=== PATIENT | female | born 1955 | race Caucasian/White ===

== ENCOUNTER 2018-10-16 17:27 | Inpatient (IN) ==
[2018-10-16] MEDS ORDERED: Ketorolac 15 MG/ML VIAL IVP ONE (17:54)
[2018-10-16] MEDS ORDERED: 0.9 % Sodium Chloride 1,000 ML IVC ONE (17:54)
[2018-10-16] MEDS ORDERED: Isovue-370 500 ML BOTTLE IVP ONE (17:54)
[2018-10-16 18:15] LABS: Basophils # 0.1 K/mcL (0.0-0.2); Basophils % 0.2 %; Hematocrit 44.2 % (35.3-44.9); Immature Granulocytes % 0.6 % (0-4); Lymphocytes % 9.2 %; Mean Corpuscular HGB Conc 36.2 g/dL (31.6-35.5); Mean Corpuscular Hemoglobin 30.8 pg (28.0-33.3); Mean Platelet Volume 9.1 fL (9.4-12.4); Monocytes % 6.6 %; Neutrophils # 22.1 K/mcL (1.6-8.9); Platelet Count 420 K/mcL (140-400); Red Cell Distribution Width 12.4 % (11.5-14.5); Segmented Neutrophils % 83.4 %; White Blood Count 26.5 K/mcL (4.3-11.1)
[2018-10-16 18:16] LABS: Lymphocytes # 2.4 K/mcL (0.6-4.6); Monocytes # 1.8 K/mcL (0.0-1.3)
[2018-10-16 18:33] LABS: Potassium 2.8 mEq/L (3.5-5.1)
[2018-10-16 18:36] LABS: Platelet Estimate Normal (Normal)
[2018-10-16] MEDS ORDERED: Clindamycin 600 MG/50 ML 600 MG/50 ML IV.SOLN IVPB STA (19:22)
--- NOTE | 2018-10-16 19:36 | Emergency Department Note ---
Disposition Clinical Impression: Abscess of tongue Disposition: Admitted As Inpatient Condition: Fair Time of Disposition: 19:00 General Adult HPI - General Chief complaint: ED Shortness of Breath/Dyspnea Stated complaint: tongue/throat swelling Time Seen by Provider: 10/16/18 17:33 Source: patient Limitations: no limitations Nursing Notes Reviewed: Yes Vital Signs Reviewed: Yes - History of Present Illness HPI Narrative: 63-year-old female presents emergency Department with concerns of swelling of the tongue and sore throat. Patient was evaluated yesterday for similar symptoms and diagnosed as possible viral syndrome. She is given steroids and pain medication however the symptoms worsened today. She states she is unable to swallow. She does have swelling of the left side of her tongue. Today she was evaluated again by her primary care provider who also reported likely viral syndrome. She denies fever, vomiting, chest pain, shortness of breath, abdominal pain. Patient reports that she has been unable to eat or drink today and feels lightheaded. Pain Scale: 10 - Related Data Home Medications Medication Instructions Recorded Confirmed Amlodipine Besylate 10 mg PO DAILY 03/28/17 10/16/18 Losartan Potassium 100 mg PO DAILY 03/28/17 10/16/18 Citalopram [CeleXA] 20 mg PO DAILY 10/16/18 10/16/18 hydrOXYzine HCl [Hydroxyzine HCl] 25 mg PO Q8H PRN 10/16/18 10/16/18 Previous Rx's Medication Instructions Recorded predniSONE [PredniSONE] 10 mg PO DAILY #21 tablet 03/30/17 Allergies Allergy/AdvReac Type Severity Reaction Status Date / Time zomax AdvReac Hallucinati Uncoded 10/16/18 22:37 ng All systems ED: reviewed and negative except as stated. Review of Systems: As Per HPI Past Medical History - Past Medical History Attestation: Yes The following information was validated with the patient. Source: patient Medical history: Reports: hypertension Psychiatric history: Reports: no psych history - Social History Smoking Status: Current every day smoker Smokeless Tobacco Status: No Alcohol use: Reports: none Drug use: Reports: none Physical Exam General: Alert and in no acute distress Skin: Warm, dry, intact ENT: Patient has swelling of the left side of her tongue, no uvular deviation. No trismus. Neck: Tender to palpation of the left submandibular area. No posterior midline tenderness. Cardiovascular: RRR, no murmur, normal perfusion Respiratory: CTAB, no wheezing, cough, or respiratory distress Musculoskeletal: Normal strength, no tenderness, swelling or deformity GI: Soft, nontender, nondistended. Bowel sounds present Neuro: A&O to person, place, time and situation. No focal deficits noted on exam Psychiatric: cooperative and appropriate mood and affect. - General Limitations: no limitations General appearance: in no apparent distress Course Vital Signs Temperature 98.1 F 10/16/18 17:29 Pulse Rate 88 10/16/18 17:29 Respiratory Rate 16 10/16/18 17:29 Blood Pressure 209/95 10/16/18 17:29 O2 Sat by Pulse Oximetry 95 10/16/18 17:29 Temperature 98.2 F 10/16/18 21:57 Pulse Rate 82 10/16/18 21:57 Respiratory Rate 16 10/16/18 21:57 Blood Pressure 175/75 10/17/18 00:33 O2 Sat by Pulse Oximetry 91 10/16/18 21:57 Oxygen Delivery Oxygen Delivery Room Air Medical Decision Making - [facility] Narrative Medical decision making narrative: Patient had mildly prolonged QT on EKG. CT showed possible neoplasm versus abscess of the left posterior tongue, I spoke with ENT regarding the patient's case and presentation who will see the patient in the hospital. Patient pain improved with treatment in emergency department. She was started on clindamycin for likely abscess. Patient and family were updated regarding CT results. Patient will be admitted to the hospitalist for further care and evaluation. - Medical Records Medical records reviewed: Yes I reviewed the patient's medical records. - Lab Data Lab results reviewed: Yes I reviewed the patient's lab results. Result diagrams: 10/16/18 18:00 10/16/18 18:00 Lab Results 10/16/18 10/16/18 10/16/18 Range/Units 18:00 18:00 20:31 WBC 26.5 H (4.3-11.1) K/mcL RBC 5.20 H (3.82-4.97) M/mcL Hgb 16.0 H (11.5-15.4) g/dL Hct 44.2 (35.3-44.9) % MCV 85.0 (83.0-100.0) fL MCH 30.8 (28.0-33.3) pg MCHC 36.2 H (31.6-35.5) g/dL RDW 12.4 (11.5-14.5) % Plt Count 420 H (140-400) K/mcL MPV 9.1 L (9.4-12.4) fL Immature Gran % 0.6 (0-4) % Seg Neutrophils % 83.4 % Lymphocytes % 9.2 % Monocytes % 6.6 % Eosinophils % 0.0 % Basophils % 0.2 % Neutrophils # 22.1 H (1.6-8.9) K/mcL Lymphocytes # 2.4 (0.6-4.6) K/mcL Monocytes # 1.8 H (0.0-1.3) K/mcL Eosinophils # 0.0 (0.0-0.6) K/mcL Basophils # 0.1 (0.0-0.2) K/mcL Platelet Estimate Normal (Normal) Sodium 133 L (136-145) mEq/L Potassium 2.8 L (3.5-5.1) mEq/L Chloride 91 L (98-107) mEq/L Carbon Dioxide 28 (23-29) mEq/L BUN 21 (8-23) mg/dL Creatinine 1.13 (0.60-1.20) mg/dL Est GFR ( Amer) 59 L (> 60) Est GFR (Non-Af Amer) 49 L (> 60) BUN/Creatinine Ratio 19 (6-26) Glucose 117 H (70-105) mg/dL Calculated Osmolality 280 (280-300) Lactic Acid 0.8 (0.5-2.2) mmol/L Calcium 10.0 (8.6-10.3) mg/dL Magnesium 2.1 (1.6-2.6) mg/dL - Radiology Data Radiology results reviewed: Yes I reviewed the patient's radiology results. - EKG Data EKG #1 EKG attestation: Yes I reviewed and interpreted this EKG. EKG results narrative: Illnesses rhythm with a rate of 86 without evidence of STEMI or other dysrhythmia. QTC of 504, QRS 99
[2018-10-16] MEDS ORDERED: *HR* HYDROmorphone (PF) 1 MG/ML SYRINGE IVP ONE (20:13)
[2018-10-16] MEDS ORDERED: Dexamethasone 4 MG/ML VIAL IVP ONE (20:20)
[2018-10-16] MEDS ORDERED: Naloxone 0.4 MG/ML INJ IVP PRN (20:22)
[2018-10-16 20:38] LABS: Magnesium 2.1 mg/dL (1.6-2.6)
--- NOTE | 2018-10-16 21:24 | Internal Med History&Physical ---
Date of Encounter: 10/16/18 Time of Encounter: 21:21 Internal Medicine - H&P: HPI Chief complaint: neck pain Admitted From: Home Plans for Post Hospital Care: Home History of present illness: Jacqueline Baer is a 63-year-old woman with hypertension who comes in with a complaint of soreness in her throat that started 2 days ago as well as left ear pain radiating down to her left jawline. She was seen in the emergency room last night where was that she had a viral illness and was given a dose of steroids and recommended to take NSAIDs as needed. She comes in today with increasing swelling in her left submandibular area and left jaw as well as difficulty swallowing due to swelling of her tongue. She says she has been unable to even drink anything because of significant pain and difficulty swallowing. She denies associated fever or chills. She says the pain is significantly worse and the tongue swelling concerned her was brought her in for evaluation again. In the ER she was notably hypertensive and lab work revealed a leukocyte count of 26.5, sodium 133, potassium 2.8 and chloride 91. Soft tissue CT of her neck showed a nonspecific lesion posterior within the left lung base concerning for a neoplastic process or an aggressive infectious process in addition to reactive shotty lymph nodes. She was given fluids and clindamycin in the emergency room and is admitted for further care. She denies any recent dental manipulations. Vitals: Reviewed General: Well-developed woman who appears to be in notable discomfort with a voice deeper than expected. Skin: Warm and supple. HEENT: Moist mucous membranes. No conjunctivae pallor. Poor dentition with notable caries and halitosis. Left hemitongue is notably swollen and beefy in appearance with mobility hindered by pain. Neck: Notably large and tender preauricular, submandibular and anterior cervical lymph nodes with a bulging mass in the left jaw angle that is exquisitely tender to palpation and warm to touch. Chest: Normal thoracic expansion. Normal breath sounds. Clear to auscultation. Heart: Normal S1 & S2; rhythmic. No rubs or murmurs. Abdomen: Non-distended, soft and non-tender to palpation. No peritoneal reaction. Extremities: No clubbing, cyanosis or edema. No calf tenderness. Normal distal pulses. Neurological: Awake, alert and oriented to person, place and time. No focal deficits. Psych: Affect appropriate. Assessment/Plan 1. Submandibular mass: Given the rapidly progressive process, her notably poor dentition with caries and halitosis, this is likely an infectious entity with differentials including a retropharyngeal abscess, Ludwigs angina or a peritonsillar abscess. She is also at risk of developing a suppurative thrombophlebitis is adequate care is not given urgently. Will consult ENT, tart ampicillin/sulbatam 3grs q6hrs, give a 10mg dose of dexamethasone and provide analgesics as needed. Keep NPO and close respiratory watch is needed as these tissue invasive entities could lead to airway compromise. 2. Leukocytosis: Possibly reactionary from the steroids given yesterday in the ER however there is likely an element of the infectious process at play as well. Will check lactate and draw blood cultures. 3. Hypertension: Poorly controlled. Will monitor after pain is better controlled. 4. Tobacco use: 5 minutes were spent counseling and educating the patient on this habit. senior manager creative services and resources were made available. Past Med Surg Social Fam HX - Past Medical History Medical history: hypertension Psychiatric history: no psych history - Social History Smoking Status: Current every day smoker Smokeless Tobacco Status: No Alcohol use: none Drug use: none Internal Medicine - H&P: Meds Amlodipine Besylate 5 mg PO DAILY 03/28/17 [History] Losartan Potassium 100 mg PO DAILY 03/28/17 [History] predniSONE [PredniSONE] 10 mg PO DAILY #21 tablet 03/30/17 [Rx] Citalopram [CeleXA] 20 mg PO DAILY 10/16/18 [History] hydrOXYzine HCl [Hydroxyzine HCl] 25 mg PO Q8H PRN 10/16/18 [History] hydroCHLOROthiazide [Hydrochlorothiazide] 25 mg PO DAILY 10/16/18 [History] Allergy/AdvReac Type Severity Reaction Status Date / Time No Known Allergies Allergy Verified 03/28/17 19:16 All Systems PM: A 10-system review of systems was performed and is negative for pertinent findings except as documented above in the HPI. Family history reviewed and found non-contributory. - Constitutional Vitals: Temp Pulse Resp BP Pulse Ox 98.1 F 79 16 173/86 97 10/16/18 17:29 10/16/18 19:46 10/16/18 19:46 10/16/18 19:46 10/16/18 19:46 Exam: . Internal Med - H&P Results - Labs CBC & Chem 7: 10/16/18 18:00 10/16/18 18:00 Labs: Short CBC 10/16/18 Range/Units 18:00 WBC 26.5 H (4.3-11.1) K/mcL Hgb 16.0 H (11.5-15.4) g/dL Hct 44.2 (35.3-44.9) % Plt Count 420 H (140-400) K/mcL Neutrophils # 22.1 H (1.6-8.9) K/mcL BMP 10/16/18 18:00 Sodium 133 L Potassium 2.8 L Chloride 91 L Carbon Dioxide 28 BUN 21 Creatinine 1.13 Glucose 117 H Calcium 10.0 - Impressions ITS Impressions Soft Tissue Neck CT 10/16/18 17:54 IMPRESSION: 1. Nonspecific lesion posterior within the LEFT tongue base concerning for neoplastic process versus aggressive infectious process with probable abscess. 2. Rather extensive carotid artery calcification predominates at the carotid bulb bilateral, with probable greater than 70% stenosis on the RIGHT. Ultrasound duplex or CTA neck correlation recommended. 3. A few shotty lymph nodes in the bilateral upper neck are probably reactive, nonspecific. 4. Emphysema. D/ / Zack Herrera / Zack Herrera Interpreting Provider: Zack Herrera - Time Spent With Patient Total time spent is greater than 50% in coordination of care (as documented) at patient's floor/unit and/or counseling patient: Greater than 35 minutes
[2018-10-16] MEDS: Potassium Chloride 40 MEQ in D5% in 0.45% NACL 1,000 ML IVC SCH (21:35)
[2018-10-16] MEDS: Ampicillin/Sulbactam 3,000 MG in 0.9 % Sodium Chloride Mini Bag 100 ML IVPB SCH (23:16)
[2018-10-16] MEDS: Ketorolac 30 MG/ML VIAL IVP PRN (23:22)
[2018-10-17] MEDS ORDERED: Dexamethasone 4 MG/ML VIAL IVP ONE (04:01)
[2018-10-17] MEDS ORDERED: *HR* Labetalol 20 MG/4 ML SYRINGE IVP ONE (04:02)
[2018-10-17 05:31] LABS: Basophils % 0.1 %; Hematocrit 40.9 % (35.3-44.9); Immature Granulocytes % 0.6 % (0-4); Lymphocytes # 0.7 K/mcL (0.6-4.6); Lymphocytes % 4.3 %; Mean Corpuscular HGB Conc 35.7 g/dL (31.6-35.5); Mean Corpuscular Hemoglobin 31.4 pg (28.0-33.3); Mean Platelet Volume 9.2 fL (9.4-12.4); Monocytes # 0.4 K/mcL (0.0-1.3); Monocytes % 2.5 %; Platelet Count 362 K/mcL (140-400); Red Blood Count 4.65 M/mcL (3.82-4.97); Red Cell Distribution Width 12.7 % (11.5-14.5); Segmented Neutrophils % 92.5 %; White Blood Count 16.2 K/mcL (4.3-11.1)
[2018-10-17 05:37] LABS: Hemoglobin 14.6 g/dL (11.5-15.4)
[2018-10-17 05:43] LABS: Alanine Aminotransferase 14 Units/L (7-52); Albumin/Globulin Ratio 1.2 (1.1-2.2); Alkaline Phosphatase 112 Units/L (34-104); Aspartate Amino Transferase 12 Units/L (13-39); BUN/Creatinine Ratio 22 (6-26); Bilirubin,Direct 0.1 mg/dL (0.0-0.2); Bilirubin,Indirect 0.4 mg/dL (0.0-1.2); Bilirubin,Total 0.5 mg/dL (0.3-1.0); Blood Urea Nitrogen 20 mg/dL (8-23); Calcium 9.1 mg/dL (8.6-10.3); Carbon Dioxide 25 mEq/L (23-29); Chloride 98 mEq/L (98-107); Globulin 3.3 g/dL (2.4-3.5); Glucose 170 mg/dL (70-105); Osmolality,Calculated 281 (280-300); Potassium 3.1 mEq/L (3.5-5.1); Sodium 132 mEq/L (136-145); Total Protein 7.3 g/dL (6.4-8.9); eGFR For African Americans > 60 (> 60); eGFR For Non-African Americans > 60 (> 60)
[2018-10-17 05:53] LABS: Activated Partial Thrombo Time 32.4 Seconds (26.0-36.0); Prothrombin Time 11.4 Seconds (9.4-12.1)
[2018-10-17] MEDS: Ampicillin/Sulbactam 3,000 MG in 0.9 % Sodium Chloride Mini Bag 100 ML IVPB SCH ×3 (05:57→17:36)
[2018-10-17] MEDS ORDERED: Potassium Chloride 40 MEQ, Lidocaine 1% 2 ML in D5% in Water 500 ML IVPB ONE (08:36)
[2018-10-17] MEDS ORDERED: amLODIPine 5 MG TABLET PO SCH (09:00)
--- NOTE | 2018-10-17 09:47 | Electrocardiograph Report ---
[address] [address] Test Date: 2018-10-16 Pat Name: Jacqueline Baer Department: [id number] Room: 3A63 Gender: F Family Life Counselor: : 1955 Requested By: Luis F Byers Order Number: [id number] Reading MD: Mateo Romero Measurements Intervals [place] Rate: 86 P: 69 MD: 170 QRS: 67 QRSD: 99 T: 39 QT: 421 QTc: 504 Interpretive Statements Sinus rhythm LAE, consider biatrial enlargement Left ventricular hypertrophy with ST-T changes Prolonged QT interval Electronically Signed On 10-17-2018 9:45:40 EDT by Mateo Romero
[2018-10-17] MEDS: *HR* Labetalol 20 MG/4 ML SYRINGE IVP PRN (11:09)
[2018-10-17] MEDS: Ketorolac 30 MG/ML VIAL IVP PRN (11:10)
[2018-10-17] MEDS: Nicotine 21 MG PATCH.TD24 TD SCH (11:10)
--- NOTE | 2018-10-17 12:04 | Internal Med Progress Note ---
Hospitalist Progress Note - Encounter Date of Encounter: 10/17/18 Time of Encounter: 09:30 - Subjective Interval History: H&P reviewed. Patient states that her tongue discomfort is somewhat better today. No fever/chills - Exam Vitals: Temp Pulse Resp BP Pulse Ox 98.3 F 71 15 180/65 94 10/17/18 10:52 10/17/18 10:52 10/17/18 10:52 10/17/18 10:52 10/17/18 10:52 Exam: Vitals: Reviewed General: not in distress HEENT: Poor dentition with notable caries and halitosis. Left hemitongue is notably swollen with mobility limited by pain. Unable to visualize uvula very well due to limited tongue movement Neck: several tender cervical lymph nodes on the left Chest: Normal thoracic expansion. Normal breath sounds. Clear to auscultation. Heart: Normal S1 & S2; rhythmic. No rubs or murmurs. Abdomen: Non-distended, soft and non-tender to palpation. No peritoneal reaction. Neurological: Awake, alert and oriented to person, place and time. No focal deficits. - Assessment and Plan (1) Abscess of tongue Current Visit: Yes Status: Acute Assessment and Plan: CT scan demonstrated nonspecific posterior left tongue base lesion ?neoplastic process vs. abscess associated with leukocytosis as well started on IV Unasyn, continue ENT consult, keep NPO till then (2) HTN (hypertension) Current Visit: Yes Status: Chronic Assessment and Plan: When necessary labetalol while nothing by mouth (3) Carotid artery stenosis Current Visit: Yes Status: Acute Assessment and Plan: Incidental finding of extensive carotid artery calcification laterally. No history of CVA/TIA Carotid Doppler (4) Anxiety Current Visit: Yes Status: Chronic Assessment and Plan: On when necessary hydroxyzine at home will use IV Ativan while NPO DVT Prophylaxis: EPCD - Time Spent with Patient Total time spent is greater than 50% in coordination of care (as documented) at patient's floor/unit and/or counseling patient: 25 - 35 minutes Plan of Care Discussed with: patient (Discussed with ENT) Internal Medicine: Result - Labs CBC & Chem 7: 10/17/18 04:49 10/17/18 04:49 Labs: Short CBC 10/16/18 10/17/18 Range/Units 18:00 04:49 WBC 26.5 H 16.2 H (4.3-11.1) K/mcL Hgb 16.0 H 14.6 (11.5-15.4) g/dL Hct 44.2 40.9 (35.3-44.9) % Plt Count 420 H 362 (140-400) K/mcL Neutrophils # 22.1 H 15.0 H (1.6-8.9) K/mcL BMP 10/16/18 10/17/18 18:00 04:49 Sodium 133 L 132 L Potassium 2.8 L 3.1 L Chloride 91 L 98 Carbon Dioxide 28 25 BUN 21 20 Creatinine 1.13 0.90 Glucose 117 H 170 H Calcium 10.0 9.1 Liver Function 10/17/18 Range/Units 04:49 Total Bilirubin 0.5 (0.3-1.0) mg/dL Direct Bilirubin 0.1 (0.0-0.2) mg/dL AST 12 L (13-39) Units/L ALT 14 (7-52) Units/L Alkaline Phosphatase 112 H (34-104) Units/L Albumin 4.0 (3.5-5.7) g/dL - ABG Interpretation ABG results: PT/INR, D-dimer PT 11.4 Seconds (9.4-12.1) 10/17/18 04:49 - Impressions Impressions Soft Tissue Neck CT 10/16/18 17:54 IMPRESSION: 1. Nonspecific lesion posterior within the LEFT tongue base concerning for neoplastic process versus aggressive infectious process with probable abscess. 2. Rather extensive carotid artery calcification predominates at the carotid bulb bilateral, with probable greater than 70% stenosis on the RIGHT. Ultrasound duplex or CTA neck correlation recommended. 3. A few shotty lymph nodes in the bilateral upper neck are probably reactive, nonspecific. 4. Emphysema. D/ / Zack Herrera / Zack Herrera Interpreting Provider: Zack Herrera Consult Discharge Plan - Plan Referrals: Chuck Rolon DO [Primary Care Provider] - ___ (2) HTN (hypertension) Qualifiers: Hypertension type: essential hypertension Qualified Code(s): I10 - Essential (primary) hypertension (3) Carotid artery stenosis Qualifiers: Laterality: bilateral Qualified Code(s): I65.23 - Occlusion and stenosis of bilateral carotid arteries
[2018-10-17] MEDS ORDERED: *HR* LORazepam 2 MG/ML VIAL IVP PRN (12:11)
--- NOTE | 2018-10-17 12:52 | ENT - Consult Note ---
Date of Encounter: 10/17/18 Time of Encounter: 12:48 Assessment and Plan (1) Abscess of tongue Current Visit: Yes Status: Acute 63 yo female w/ increased risk of H&N scca with small 13x8mm left tongue abscess. Is currently responding to IV antibiotics so I would continue for 36- 48h then consider switching to oral antibiotics. If she does well on oral then would DC home. If at any time she worsens would discuss the r/b of proceeding to the OR for incision and drainage of abscess. Patient indicates understanding and agrees with plan. History of Present Illness Consult date: 10/17/18 Reason for ENT Consult: other History of present illness: 63 yo female w/ h/o throat pain since Saturday. Was seen in ED on and given steroids and NSAIDs for presumed viral illness. Developed left tongue swelling and worsening pain, odynophagia, and L otalgia and returned last night with worsening exam and elevated WBC. CT neck with contrasts showed 8x13mm fluid collection at the approx intersection of the posterior 1/3 and anteriorly 2/3 of the L tongue with mass effect on the valeculla. Genioglossus is edematous and there is soft tissue stranding in L level II. Today patient reports improvement in pain and ability to swallow. Pain is 5/10 now. Receizing IV zosyn and had dose of steroids in ER. Has not tried to take anything by mouth today. ROS was done and was negative for cough, nasal congestion, hemoptysis, teeth pain, voice changes or hearing changes. Past Med Surg Social Fam HX - Past Medical History Medical history: hypertension Psychiatric history: no psych history - Social History Smoking Status: Current every day smoker Packs per day: 2 Smokeless Tobacco Status: No Alcohol use: none Drug use: none Medications and Allergies Amlodipine Besylate 10 mg PO DAILY 03/28/17 [History] Losartan Potassium 100 mg PO DAILY 03/28/17 [History] predniSONE [PredniSONE] 10 mg PO DAILY #21 tablet 03/30/17 [Rx] Citalopram [CeleXA] 20 mg PO DAILY 10/16/18 [History] hydrOXYzine HCl [Hydroxyzine HCl] 25 mg PO Q8H PRN 10/16/18 [History] Allergy/AdvReac Type Severity Reaction Status Date / Time zomax AdvReac Hallucinati Uncoded 10/16/18 22:37 ng ENT Exam Initial Vital Signs Temp Pulse Resp BP Pulse Ox 98.1 F 88 16 209/95 95 10/16/18 17:29 10/16/18 17:29 10/16/18 17:29 10/16/18 17:29 10/16/18 17:29 - Additional Findings General: reviewed vital signs. Patient appears well is alert and appropriately answers questions. Has low coarse voice Head: Normocephalic, atraumatic. No sinus tenderness to palpation Ears: normal auricles bilaterally. EAC clear on the left. EAC clear on the right. TM on the left is pearly with good landmarks, no retractions, and mobile to autoinsufflation. TM on the right is pearly with good landmarks, no retractions, and mobile to insufflation. Hearing intact to quiet voice. Nose: external nose without major deformity. Nasal septum is midline. Nasal turbinates with mild edema bilaterally. Mucosa is moist and pink with thick sticky mucous Oral cavity: mild/moderate trismus. lips without lesions. Gums and hard palate normal, mucous membranes are moist. Teeth in poor condition Floor of mouth is soft. Jesús's and Bobbi's ducts are normal bilaterally. Tongue is TTP with mild enlargement on the left with induration of the dorsal tongue just anteriorly to the circumvellate papilla. No masses or lesions noted. Oropharynx: uvula is midline. Tonsils are atrophic. Posterior pharyngeal wall is unremarkable. Neck: no overlying skin changes. Midline trachea, no crepitus. Thyroid is small and symmetric. There is L LAD of levels I II and III. Parotid and govea bmandibular glands are soft on the R, somewhat enlarged on the left and firm SMG. Slight tenderness to palpation around the neck. Cranial Nerves: CN II-XII intact and symmetric. Mood and affect are appropriate. CV: carotid pulses are symmetric and normal in the neck. No JVD, good BL UE distal pulses. Pulm: normal chest expansion, normal respiratory effort. No peripheral cyanosis. Flexible Nasopharyngoscopy: After verbal informed consent was obtained, the bi lteral nares was sprayed with 1:1 ratio of afrin and 4% topical lidocaine. The bilateral nasal cavity was examined and there was no lesions noted. The nasopharynx was clear with---. There were no lesions in the bilateral fossa of rosenmueller. The nasopharynx, velopharynx, oropharynx, hypopharynx, and glottis were examinded with no abnormalities, notably no mucosal abnormalities seen The patient tolerated this well. Exam Initial Vital Signs Temp Pulse Resp BP Pulse Ox 98.1 F 88 16 209/95 95 10/16/18 17:29 10/16/18 17:29 10/16/18 17:29 10/16/18 17:29 10/16/18 17:29 Results - Labs 10/17/18 04:49 10/17/18 04:49 Abnormal lab results WBC 16.2 K/mcL (4.3-11.1) H 10/17/18 04:49 RBC 5.20 M/mcL (3.82-4.97) H 10/16/18 18:00 Hgb 16.0 g/dL (11.5-15.4) H 10/16/18 18:00 MCHC 35.7 g/dL (31.6-35.5) H 10/17/18 04:49 Plt Count 420 K/mcL (140-400) H 10/16/18 18:00 MPV 9.2 fL (9.4-12.4) L 10/17/18 04:49 15.0 K/mcL (1.6-8.9) H 10/17/18 04:49 1.8 K/mcL (0.0-1.3) H 10/16/18 18:00 Sodium 132 mEq/L (136-145) L 10/17/18 04:49 Potassium 3.1 mEq/L (3.5-5.1) L 10/17/18 04:49 Chloride 91 mEq/L (98-107) L 10/16/18 18:00 Est GFR ( Amer) 59 (> 60) L 10/16/18 18:00 Est GFR (Non-Af Amer) 49 (> 60) L 10/16/18 18:00 Glucose 170 mg/dL (70-105) H 10/17/18 04:49 POC Glucose 132 mg/dL (70-99) H 10/17/18 10:55 AST 12 Units/L (13-39) L 10/17/18 04:49 112 Units/L (34-104) H 10/17/18 04:49 Diabetes panel 10/16/18 10/17/18 Range/Units 18:00 04:49 Sodium 133 L 132 L (136-145) mEq/L Potassium 2.8 L 3.1 L (3.5-5.1) mEq/L Chloride 91 L 98 (98-107) mEq/L Carbon Dioxide 28 25 (23-29) mEq/L BUN 21 20 (8-23) mg/dL Creatinine 1.13 0.90 (0.60-1.20) mg/dL Glucose 117 H 170 H (70-105) mg/dL Calcium 10.0 9.1 (8.6-10.3) mg/dL AST 12 L (13-39) Units/L ALT 14 (7-52) Units/L Alkaline Phosphatase 112 H (34-104) Units/L Albumin 4.0 (3.5-5.7) g/dL Calcium panel 10/16/18 10/17/18 Range/Units 18:00 04:49 Calcium 10.0 9.1 (8.6-10.3) mg/dL Albumin 4.0 (3.5-5.7) g/dL Pituitary panel 10/16/18 10/17/18 Range/Units 18:00 04:49 Sodium 133 L 132 L (136-145) mEq/L Potassium 2.8 L 3.1 L (3.5-5.1) mEq/L Chloride 91 L 98 (98-107) mEq/L Carbon Dioxide 28 25 (23-29) mEq/L BUN 21 20 (8-23) mg/dL Creatinine 1.13 0.90 (0.60-1.20) mg/dL Glucose 117 H 170 H (70-105) mg/dL Calcium 10.0 9.1 (8.6-10.3) mg/dL Adrenal panel 10/16/18 10/17/18 Range/Units 18:00 04:49 Sodium 133 L 132 L (136-145) mEq/L Potassium 2.8 L 3.1 L (3.5-5.1) mEq/L Chloride 91 L 98 (98-107) mEq/L Carbon Dioxide 28 25 (23-29) mEq/L BUN 21 20 (8-23) mg/dL Creatinine 1.13 0.90 (0.60-1.20) mg/dL Glucose 117 H 170 H (70-105) mg/dL Calcium 10.0 9.1 (8.6-10.3) mg/dL Total Bilirubin 0.5 (0.3-1.0) mg/dL AST 12 L (13-39) Units/L ALT 14 (7-52) Units/L Alkaline Phosphatase 112 H (34-104) Units/L Albumin 4.0 (3.5-5.7) g/dL All other labs normal. Consult Discharge Plan - Plan Referrals: Chuck Rolon DO [Primary Care Provider] -
[2018-10-17] MEDS: Potassium Chloride 40 MEQ in D5% in 0.45% NACL 1,000 ML IVC SCH (17:36)
[2018-10-18] MEDS: Ampicillin/Sulbactam 3,000 MG in 0.9 % Sodium Chloride Mini Bag 100 ML IVPB SCH ×5 (00:37→23:47)
[2018-10-18 06:21] LABS: Basophils % 0.2 %; Eosinophils % 0.1 %; Hematocrit 35.8 % (35.3-44.9); Hemoglobin 12.6 g/dL (11.5-15.4); Immature Granulocytes % 0.3 % (0-4); Lymphocytes # 2.8 K/mcL (0.6-4.6); Lymphocytes % 23.7 %; Mean Corpuscular HGB Conc 35.2 g/dL (31.6-35.5); Mean Corpuscular Hemoglobin 31.3 pg (28.0-33.3); Mean Corpuscular Volume 88.8 fL (83.0-100.0); Mean Platelet Volume 9.4 fL (9.4-12.4); Monocytes # 0.8 K/mcL (0.0-1.3); Monocytes % 6.6 %; Neutrophils # 8.1 K/mcL (1.6-8.9); Platelet Count 286 K/mcL (140-400); Red Blood Count 4.03 M/mcL (3.82-4.97); Red Cell Distribution Width 12.9 % (11.5-14.5); Segmented Neutrophils % 69.1 %; White Blood Count 11.7 K/mcL (4.3-11.1)
[2018-10-18 06:38] LABS: BUN/Creatinine Ratio 19 (6-26); Blood Urea Nitrogen 15 mg/dL (8-23); Calcium 8.4 mg/dL (8.6-10.3); Carbon Dioxide 28 mEq/L (23-29); Chloride 101 mEq/L (98-107); Glucose 94 mg/dL (70-105); Osmolality,Calculated 285 (280-300); Potassium 3.3 mEq/L (3.5-5.1); Sodium 137 mEq/L (136-145); eGFR For African Americans > 60 (> 60); eGFR For Non-African Americans > 60 (> 60)
[2018-10-18] MEDS ORDERED: Potassium Chloride Elixir 20 MEQ/15 ML UDC PO ONE (09:00)
--- NOTE | 2018-10-18 09:50 | Discharge Summary ---
Orders not resulted at time of discharge: Pending orders 10/16/18 20:31 Culture,Blood [BC] Stat Date of Encounter: 10/18/18 Time of Encounter: 07:45 - Discharge Diagnosis (1) Abscess of tongue Priority: Primary Status: Acute (2) HTN (hypertension) Priority: Secondary Status: Chronic Qualifiers: Hypertension type: essential hypertension Qualified Code(s): I10 - Essential (primary) hypertension (3) Carotid artery stenosis Priority: Secondary Status: Acute Qualifiers: Laterality: bilateral Qualified Code(s): I65.23 - Occlusion and stenosis of bilateral carotid arteries (4) Anxiety Priority: Secondary Status: Chronic Hospital course: Ms. Baer is a 63 year old female with history of hypertension, tobacco abuse, who was admitted for L tongue abscess in the setting of poor dentition/caries. Also had leukocytosis of 26 on presentation. STarted on IV Unasyn with clinical improvement. SEen in consultation with ENT and given her response to IV Abx, pt was recommended for medical treatment. Incidentally, on CT neck, there was extensive carotid artery calcification predominantly at the carotid bulb bilaterally hence doppler study was performed. Both ICAs had 40-59% stenosis. White blood cell count downtrended from 26-11.7 after 2 days of IV antibiotics and she will be discharged home on a total of 14 day course with PO Augmentin and ENT follow up if needed. Coreg 12.5mg BID was added for poorly controlled HTN. Discharge discussed with: patient, family, nurse, end user consultant - Time Spent with Patient Total time spent providing and/or coordinating discharge services: 31 mins - Discharge Medications Prescriptions: New Amoxicillin/Clavulanate [Augmentin] 875 mg PO BIDWM 12 Days #24 tablet Carvedilol [Coreg] 12.5 mg PO BID #30 tablet Continued Losartan Potassium 100 mg PO DAILY Amlodipine Besylate 10 mg PO DAILY predniSONE [PredniSONE] 10 mg PO DAILY #21 tablet Citalopram [CeleXA] 20 mg PO DAILY hydrOXYzine HCl [Hydroxyzine HCl] 25 mg PO Q8H PRN PRN Reason: Anxiety Home Medications: Amlodipine Besylate 10 mg PO DAILY 03/28/17 [History] Losartan Potassium 100 mg PO DAILY 03/28/17 [History] predniSONE [PredniSONE] 10 mg PO DAILY #21 tablet 03/30/17 [Rx] Citalopram [CeleXA] 20 mg PO DAILY 10/16/18 [History] hydrOXYzine HCl [Hydroxyzine HCl] 25 mg PO Q8H PRN 10/16/18 [History] Amoxicillin/Clavulanate [Augmentin] 875 mg PO BIDWM 12 Days #24 tablet 10/18/18 [Rx] Carvedilol [Coreg] 12.5 mg PO BID #30 tablet 10/18/18 [Rx] Allergies/Adverse Reactions: Allergy/AdvReac Type Severity Reaction Status Date / Time zomax AdvReac Hallucinati Uncoded 10/16/18 22:37 ng Date of admission: 10/17/18 04:06 Primary care physician: Chuck Rolon DO Consults: 10/16/18 19:38 Consult to ENT [CONS] Stat Consulting Provider: JENN Genao Reason for Consult: tongue swelling Time Notified: 19:38 Call Completed: Yes 10/16/18 22:33 Consult to Nutrition [CONS] Routine Comment: Consulting Provider: NUTRITION Reason for Dietary Consult: MST Score 10/17/18 14:43 Consult to Speech Therapy [CONS] Routine Comment: Evaluate, develop and implement POC Reason for Consult: Swollen tongue, pain with swallowing Call Completed: Yes - Constitutional Vitals: Temp Pulse Resp BP Pulse Ox 97.7 F 60 14 188/72 97 10/18/18 07:37 10/18/18 07:37 10/18/18 07:37 10/18/18 07:37 10/18/18 07:37 Exam: Vitals: Reviewed General: not in distress HEENT: Poor dentition with notable caries and halitosis. Left hemitongue is notably swollen with mobility limited by pain. Unable to visualize uvula very well due to limited tongue movement Neck: several tender cervical lymph nodes on the left Chest: Normal thoracic expansion. Normal breath sounds. Clear to auscultation. Heart: Normal S1 & S2; rhythmic. No rubs or murmurs. Abdomen: Non-distended, soft and non-tender to palpation. No peritoneal reaction. Neurological: Awake, alert and oriented to person, place and time. No focal deficits. - Patient Status Disposition: Home, Self-Care Condition: Fair Functional capacity at discharge: independent ambulation Overall status at discharge: patient is progressing back to baseline - Discharge Instructions Instructions: Peripheral Vascular Disorders (DC), Anxiety (DC), Chronic Hypertension (DC) Follow Up With: Chuck Rolon DO [Primary Care Provider] - Anh Harris [Partnered Physician] - - Diet and Activity Activity: resume usual activities as tolerated Diet: other (pureed diet)
[2018-10-18] MEDS: Nicotine 21 MG PATCH.TD24 TD SCH (10:23)
--- NOTE | 2018-10-18 11:53 | ENT - Progress Note ---
Date of Encounter: 10/18/18 Time of Encounter: 11:51 - Assessment and Plan (1) Abscess of tongue Current Visit: Yes Status: Acute 63 yo female HD#2 for IV abx for small tongue abscess. Clinically patient is improving in white count and physical exam. Still has continued pain. I would like to have patient kept NPO after midnight and I will round early tomorrow AM. If pain is not improved will plan for I&D of abscess in OR with general anesthesia for airway protection. If improved would switch to PO antibiotics tomorrow AM. Code(s): K14.0 - Glossitis SNOMED Code(s): 81599930 Subjective Patient reports: no new complaints (HD#2 for small left tongue abscess, pain, and decreased PO intake. Pt continues on IV unasyn and pain control. Has been afebrile since admission. Reports that pain is the same today. Continues to have difficulty with food although chart documents that she ate 100% of her pureed breakfast.), afebrile Objective Initial Vital Signs Temp Pulse Resp BP Pulse Ox 98.1 F 88 16 209/95 95 10/16/18 17:29 10/16/18 17:29 10/16/18 17:29 10/16/18 17:29 10/16/18 17:29 - General physical appearance well developed, well nourished, no distress - ENT Other (Today on the left side of the tongue there are 2 small (2mm) areas of yellow ulceration. Not friable. Tongue feels less edematous today but continues to be indurated. Foul odor is improved today.) - Neck no masses, no lymphadectomy - Labs 10/18/18 05:32 10/18/18 05:32 Diabetes panel 10/18/18 Range/Units 05:32 Sodium 137 (136-145) mEq/L Potassium 3.3 L (3.5-5.1) mEq/L Chloride 101 (98-107) mEq/L Carbon Dioxide 28 (23-29) mEq/L BUN 15 (8-23) mg/dL Creatinine 0.78 (0.60-1.20) mg/dL Glucose 94 (70-105) mg/dL Calcium 8.4 L (8.6-10.3) mg/dL Calcium panel 10/18/18 Range/Units 05:32 Calcium 8.4 L (8.6-10.3) mg/dL Pituitary panel 10/18/18 Range/Units 05:32 Sodium 137 (136-145) mEq/L Potassium 3.3 L (3.5-5.1) mEq/L Chloride 101 (98-107) mEq/L Carbon Dioxide 28 (23-29) mEq/L BUN 15 (8-23) mg/dL Creatinine 0.78 (0.60-1.20) mg/dL Glucose 94 (70-105) mg/dL Calcium 8.4 L (8.6-10.3) mg/dL Adrenal panel 10/18/18 Range/Units 05:32 Sodium 137 (136-145) mEq/L Potassium 3.3 L (3.5-5.1) mEq/L Chloride 101 (98-107) mEq/L Carbon Dioxide 28 (23-29) mEq/L BUN 15 (8-23) mg/dL Creatinine 0.78 (0.60-1.20) mg/dL Glucose 94 (70-105) mg/dL Calcium 8.4 L (8.6-10.3) mg/dL Consult Discharge Plan - Plan Instructions: Peripheral Vascular Disorders (DC), Chronic Hypertension (DC), Anxiety (DC) Referrals: Anh Harris [Partnered Physician] - Chuck Rolon DO [Primary Care Provider] - Prescriptions: Amoxicillin/Clavulanate [Augmentin] 875 mg PO BIDWM 12 Days #24 tablet Carvedilol [Coreg] 12.5 mg PO BID #30 tablet
[2018-10-18] MEDS: *HR* Labetalol 20 MG/4 ML SYRINGE IVP PRN (12:09)
[2018-10-18] MEDS: Ketorolac 30 MG/ML VIAL IVP PRN ×2 (12:12→18:32)
[2018-10-19] MEDS: *HR* Labetalol 20 MG/4 ML SYRINGE IVP PRN ×2 (03:24→12:58)
[2018-10-19] MEDS: Ampicillin/Sulbactam 3,000 MG in 0.9 % Sodium Chloride Mini Bag 100 ML IVPB SCH ×2 (05:28→12:57)
[2018-10-19] MEDS: Nicotine 21 MG PATCH.TD24 TD SCH (08:09)
[2018-10-19] MEDS ORDERED: amLODIPine 5 MG TABLET PO SCH (09:00)
--- NOTE | 2018-10-19 09:24 | ENT - Progress Note ---
Date of Encounter: 10/19/18 Time of Encounter: 08:57 - Assessment and Plan (1) Abscess of tongue Current Visit: Yes Status: Acute 63 yo female HD#2 for IV abx for small tongue abscess. Clinically patient has continued to improve and although she still has pain it is also improved. Given her continued pain and otalgia I still have a high clinical suspision for underlying neoplasm. Agree with plan for transition to PO Augmentin x10 days. We will see her back in the ENT clinic in 7-10 days for repeat exam and [employer] scope. Thank you for the medical care of this patient. ENT will sign off for now. Code(s): K14.0 - Glossitis SNOMED Code(s): 87277832 Subjective Patient reports: no new complaints (No acute events o/n. Has been NPO since midnight. Afebrile for duration of hospital stay. Last dose of pain medication was oxycodone at 22:30 last night. Continues to have L tongue and ear pain but it is improved from yesterday.) Objective Initial Vital Signs Temp Pulse Resp BP Pulse Ox 98.1 F 88 16 209/95 95 10/16/18 17:29 10/16/18 17:29 10/16/18 17:29 10/16/18 17:29 10/16/18 17:29 - General physical appearance well developed, well nourished, no distress, no pain - ENT Other (No trismus. Area on left side of tongue with rhomboid erythema and 2 2mm ulcerations appears stable. Tongue feels much softs and I do not appreciate any induration this AM. She continues to have moderate pain with bimanual palpation.) - Neck no masses, trachea midline, no lymphadectomy - Labs 10/18/18 05:32 10/18/18 05:32 Consult Discharge Plan - Plan Instructions: Peripheral Vascular Disorders (DC), Chronic Hypertension (DC), Anxiety (DC) Referrals: Anh Harris [Partnered Physician] - Chuck Rolon DO [Primary Care Provider] - Prescriptions: Amoxicillin/Clavulanate [Augmentin] 875 mg PO BIDWM 12 Days #24 tablet Carvedilol [Coreg] 12.5 mg PO BID #30 tablet
--- NOTE | 2018-10-19 09:59 | Event Note ---
Date of Encounter: 10/19/18 Time of Encounter: 08:00 See discharge summary for interim events. Discharge was held yesterday as there was a question on whether I&D would be needed today. Received a call from ENT surgeon this morning that she is clinically improving and be ok with discharge with PO abx. Follow up with ENT as directed.
[2018-10-19 10:48] VITALS: BP 172/77
== END 2018-10-19 14:39 | disposition home or self-care (01) | DRG 159 ==
LOC: EMEROOARM 17:27 → 3ANU 17:27 → SUATTDRO 10-17 04:06
PROVIDERS: ADMIT Internal Medicine; ATTEND Internal Medicine

== ENCOUNTER 2018-11-10 21:50 | Observation (INO) ==
[2018-11-10] MEDS ORDERED: 0.9 % Sodium Chloride 1,000 ML IVC ONE (22:44)
[2018-11-10] MEDS ORDERED: *HR* Promethazine 25 MG/ML VIAL IVP ONE (22:44)
[2018-11-10] MEDS ORDERED: *HR* FentaNYL (PF) 100 MCG/2 ML VIAL IVP ONE (22:44)
[2018-11-10] MEDS ORDERED: *HR* Labetalol 20 MG/4 ML SYRINGE IVP ONE (22:46)
--- NOTE | 2018-11-10 23:05 | Emergency Department Note ---
Disposition Clinical Impression: Accelerated hypertension, Troponin I above reference range, Hyponatremia, Hypokalemia, Aneurysm of infrarenal abdominal aorta Disposition: Admitted As Inpatient Condition: Fair Referrals: Chuck Rolon DO [Primary Care Provider] - Forms: ED Satisfaction Letter, Work/School Release Time of Disposition: 00:22 General Adult HPI - General Chief complaint: ED General Medical Stated complaint: Low K+, sent by PCP Time Seen by Provider: 11/10/18 22:32 Source: patient Mode of arrival: ambulatory Limitations: no limitations Nursing Notes Reviewed: Yes Vital Signs Reviewed: Yes - History of Present Illness HPI Narrative: Patient presents emergency Department, reporting that her blood work was abno rmal and she was called and told her potassium was 2.3 and that she should go to the hospital. She reports that she was recently hospitalized for hypertension and difficulty with swallowing, with tongue swelling and throat swelling she states that all gotten better but she does report that over the last 2 days she has had increasing abdominal pain and nausea and vomiting with constipation. She has had no prior surgeries in her abdomen. Patient states that she was started on new blood pressure medication as an outpatient she reports she was able to keep this down today. She states that she took both doses her morning and nighttime dose but reports that he met discharged from the hospital her blood pressures were still significantly elevated. Patient denies any focal numbness or weakness speech difficulty vision changes neck pain jaw pain chest pain or shortness of breath. She reports that she did start to get a headache this evening. She reports no sudden onset of worst headache of life, states that she does have a headache all over but states that is mild, the majority of her discomfort is her abdomen and into her left lower abdomen more than anywhere. She states that even that is not that bad she is more worried about the nausea and vomiting and electrolyte abnormality that she was told about. She denies any palpitations. She denies sensation that she is going to pass out. She denies any leg pain or leg swelling. She states that she had these laboratory studies done in follow-up as she is supposed to have a biopsy performed for a abnormality that they found in her workup when she was admitted for the tongue swelling. She denies any urinary changes. Pain Scale: 10 - Related Data Home Medications Medication Instructions Recorded Confirmed Losartan/Hydrochlorothiazide 1 tab PO DAILY #0 03/28/17 10/18/18 [Losartan-Hctz 100-25 mg Tab] amLODIPine [Norvasc] 5 mg PO DAILY #0 03/28/17 10/18/18 Citalopram [CeleXA] 20 mg PO DAILY 10/16/18 10/18/18 hydrOXYzine HCl [Hydroxyzine HCl] 25 mg PO Q8H PRN 10/16/18 10/16/18 Previous Rx's Medication Instructions Recorded Carvedilol [Coreg] 12.5 mg PO BID #30 tablet 10/18/18 Allergies Allergy/AdvReac Type Severity Reaction Status Date / Time zomax AdvReac Hallucinating, Uncoded 11/10/18 13:39 Swelling, Rash All systems ED: reviewed and negative except as stated. Review of Systems: As Per HPI Past Medical History - Past Medical History Medical history: Reports: hypertension Surgical history: Reports: breast surgery Psychiatric history: Reports: no psych history - Social History Smoking Status: Current every day smoker Smokeless Tobacco Status: No Alcohol use: Reports: none Drug use: Reports: none Physical Exam - General Limitations: no limitations General appearance: alert - Head Head exam: atraumatic, normocephalic - Eye Eye exam: Present: normal appearance, PERRL, EOMI. Absent: scleral icterus, con junctival injection - ENT ENT exam: normal exam, normal oropharynx, mucous membranes moist - Neck Neck exam: Present: normal inspection, full ROM, trachea midline. Absent: tenderness, meningismus, lymphadenopathy, thyromegaly - Chest Chest inspection: Present: normal inspection, symmetric chest wall rise - Respiratory Respiratory exam: Present: normal lung sounds bilaterally. Absent: respiratory distress, wheezes, stridor, accessory muscle use - Cardiovascular Cardiovascular exam: Present: regular rate, normal rhythm, normal heart sounds. Absent: systolic murmur - Abdominal Exam Abdominal exam: Present: soft, other (Mild left lower quadrant tenderness no rebound guarding or peritoneal sign, no palpable or pulsatile mass. Remainder of the abdomen is soft without significant reproducible tenderness. No percussion tenderness no shake tenderness no distention, normal bowel sounds.) - Extremities Exam Extremities exam: Present: normal inspection, full ROM, normal capillary refill. Absent: tenderness, pedal edema, joint swelling - Expanded Lower Extremity Exam Hip/Pelvis exam: Present: normal inspection, full ROM Foot/toe exam: Present: normal inspection, full ROM. Absent: tenderness, swelling, abrasion Neurovascular/Tendon exam: Present: normal capillary refill. Absent: pulse deficit, motor deficit, sensory deficit, tendon deficit, extremity cold to touch, pallor - Back Exam Back exam: Present: normal inspection, full ROM. Absent: tenderness, CVA tenderness (R), CVA tenderness (L) - Neurological Exam Neurological exam: Present: alert, oriented X3, CN II-XII intact, normal gait, reflexes normal. Absent: motor sensory deficit - Psychiatric Psychiatric exam: Present: normal affect, normal mood - Skin Skin exam: Present: warm, dry, intact, normal color, other (No jaundice no rash no petechia) Course Vital Signs Temperature 97.8 F 11/10/18 21:51 Pulse Rate 90 11/10/18 21:51 Respiratory Rate 16 11/10/18 21:51 Blood Pressure 223/115 11/10/18 21:51 O2 Sat by Pulse Oximetry 98 11/10/18 21:51 Temperature 97.8 F 11/10/18 21:51 Pulse Rate 75 11/11/18 00:15 Respiratory Rate 17 11/11/18 00:15 Blood Pressure 204/91 11/11/18 00:15 O2 Sat by Pulse Oximetry 98 11/11/18 00:15 Oxygen Delivery Oxygen Delivery Room Air Medical Decision Making - [facility] Narrative Medical decision making narrative: EKG was a normal sinus rhythm, compared to prior EKG there is some nonspecific T-wave flattening, cannot completely rule out a U wave within the T-wave, no evidence of ST elevation or ST depression. No acute change from previous. Patient had an IV placed she was provided with symptomatic management. I did review her chart, she did have outpatient potassium that was listed as 10.3, we will recheck this. Imaging of the abdomen pelvis was ordered. CBC demonstrated mild leukocytosis, hemoglobin of 17.5, no other acute abnormality. Renal panel showed hyponatremia of 129 and hypokalemia of 2.1. Patient was initially 1 L bolus of IV fluids, was then started on maintenance fluids, with significant IV potassium supplementation 40 of by mouth potassium as well as 40 of IV potassium was ordered. LFTs within acceptable limits. Lipase was borderline elevated 115. CT scan of the abdomen pelvis is interpreted by radiology showed no acute intra- abdominal inflammatory process, did demonstrate 3.4 cm infrarenal aneurysm, without any findings to suggest leak or rupture without contrast. Patient is without tachycardia, without hypotension, without acute anemia, with no secondary signs to suggest leak of her aneurysm, which is also only 3.4 cm in size, and much less likely to cause rupture, with no evidence of rupture without contrast, she does have a slightly increased creatinine from baseline, at 1.15 up from 0.78 and was 1.27 as an outpatient today, do not feel based upon her c linical examination of there is indication to repeat this CAT scan with IV contrast this time. Troponin was borderline at 0.04, patient remained without any chest pain or shortness of breath. After 1 dose of IV labetalol for her significant blood pressure elevation, her blood pressure decreased from 235 systolic down to 204 systolic down from the 118 diastolic down to 91 diastolic, she was given a secondary dose of IV labetalol, however is demonstrating appropriate response to this medication at this time and her symptoms are significant improvement she had complete resolution of her headache she had significant improvement of her nausea and vomiting after Phenergan and improvement of her abdominal pain after fentanyl. Hospitalist service was contacted for admission of this patient for further evaluation and management of hyponatremia, hypokalemia, accelerated hypertension, borderline troponin elevation nausea and vomiting. - Lab Data Result diagrams: 11/10/18 22:47 11/10/18 22:47 Lab Results 11/10/18 11/10/18 11/10/18 Range/Units 22:47 22:47 22:47 WBC 13.9 H (4.3-11.1) K/mcL RBC 5.55 H (3.82-4.97) M/mcL Hgb 17.5 H (11.5-15.4) g/dL Hct 47.1 H (35.3-44.9) % MCV 84.9 (83.0-100.0) fL MCH 31.5 (28.0-33.3) pg MCHC 37.2 H (31.6-35.5) g/dL RDW 12.8 (11.5-14.5) % Plt Count 444 H (140-400) K/mcL MPV 9.5 (9.4-12.4) fL Immature Gran % 0.4 (0-4) % Seg Neutrophils % 70.8 % Lymphocytes % 20.5 % Monocytes % 7.5 % Eosinophils % 0.4 % Basophils % 0.4 % Neutrophils # 9.9 H (1.6-8.9) K/mcL Lymphocytes # 2.9 (0.6-4.6) K/mcL Monocytes # 1.1 (0.0-1.3) K/mcL Eosinophils # 0.1 (0.0-0.6) K/mcL Basophils # 0.1 (0.0-0.2) K/mcL PT 10.3 (9.4-12.1) Seconds INR 0.9 APTT 27.2 (26.0-36.0) Seconds Sodium 129 L (136-145) mEq/L Potassium 2.1 L* (3.5-5.1) mEq/L Chloride 89 L (98-107) mEq/L Carbon Dioxide 29 (23-29) mEq/L BUN 19 (8-23) mg/dL Creatinine 1.15 (0.60-1.20) mg/dL Est GFR ( Amer) 58 L (> 60) Est GFR (Non-Af Amer) 48 L (> 60) BUN/Creatinine Ratio 17 (6-26) Glucose 156 H (70-105) mg/dL Calculated Osmolality 273 L (280-300) Calcium 8.5 L (8.6-10.3) mg/dL Total Bilirubin 0.3 (0.3-1.0) mg/dL Direct Bilirubin 0.1 (0.0-0.2) mg/dL Indirect Bilirubin 0.2 (0.0-1.2) mg/dL AST 26 (13-39) Units/L ALT 28 (7-52) Units/L Alkaline Phosphatase 171 H (34-104) Units/L Troponin I 0.04 H* (< 0.04) ng/mL Serum Total Protein 6.4 (6.4-8.9) g/dL Albumin 3.2 L (3.5-5.7) g/dL Globulin 3.2 (2.4-3.5) g/dL Albumin/Globulin Ratio 1.0 L (1.1-2.2) Lipase 115 H (11-82) Units/L
[2018-11-10 23:07] LABS: INR 0.9; Prothrombin Time 10.3 Seconds (9.4-12.1)
[2018-11-10 23:09] LABS: Activated Partial Thrombo Time 27.2 Seconds (26.0-36.0)
[2018-11-10 23:28] LABS: Albumin 3.2 g/dL (3.5-5.7); Bilirubin,Direct 0.1 mg/dL (0.0-0.2); Bilirubin,Indirect 0.2 mg/dL (0.0-1.2); Bilirubin,Total 0.3 mg/dL (0.3-1.0); Calcium 8.5 mg/dL (8.6-10.3); Globulin 3.2 g/dL (2.4-3.5); Potassium 2.1 mEq/L (3.5-5.1); Total Protein 6.4 g/dL (6.4-8.9); Troponin I 0.04 ng/mL (< 0.04)
[2018-11-11 00:12] LABS: Basophils # 0.1 K/mcL (0.0-0.2); Basophils % 0.4 %; Eosinophils # 0.1 K/mcL (0.0-0.6); Eosinophils % 0.4 %; Hematocrit 47.1 % (35.3-44.9); Hemoglobin 17.5 g/dL (11.5-15.4); Immature Granulocytes % 0.4 % (0-4); Lymphocytes # 2.9 K/mcL (0.6-4.6); Lymphocytes % 20.5 %; Mean Corpuscular Hemoglobin 31.5 pg (28.0-33.3); Mean Corpuscular Volume 84.9 fL (83.0-100.0); Mean Platelet Volume 9.5 fL (9.4-12.4); Monocytes # 1.1 K/mcL (0.0-1.3); Monocytes % 7.5 %; Neutrophils # 9.9 K/mcL (1.6-8.9); Platelet Count 444 K/mcL (140-400); Red Blood Count 5.55 M/mcL (3.82-4.97); Red Cell Distribution Width 12.8 % (11.5-14.5); Segmented Neutrophils % 70.8 %; White Blood Count 13.9 K/mcL (4.3-11.1)
[2018-11-11] MEDS ORDERED: *HR* Labetalol 20 MG/4 ML SYRINGE IVP ONE (00:13)
[2018-11-11] MEDS ORDERED: 0.9 % Sodium Chloride 1,000 ML IVC SCH (00:15)
[2018-11-11 00:16] LABS: Mean Corpuscular HGB Conc 37.2 g/dL (31.6-35.5)
[2018-11-11] MEDS ORDERED: 0.9 % Sodium Chloride 1,000 ML ONE (00:16)
[2018-11-11 01:10] LABS: Bilirubin,Urine Negative (Negative); Blood,Urine Small (Negative); Clarity,Urine Clear (Clear); Color,Urine Yellow (Yellow); Glucose,Urine (UA) 250 mg/dL (Normal); Ketones,Urine Negative (Negative); Leukocyte Esterase,Urine Negative (Negative); Nitrite,Urine Negative (Negative); Protein,Urine >=1000 mg/dL (Neg-Trace); Specific Gravity,Urine 1.015 (1.010-1.025); Urobilinogen,Urine Normal (Normal)
[2018-11-11 01:14] LABS: Bacteria,Urine None Seen per hpf (None-Few); Hyaline Casts,Urine Few per lpf (None-Few); Squamous Epithelial Cell,Urine Many per lpf (None-Few); WBC,Urine 0-3 per hpf (0-3)
--- NOTE | 2018-11-11 01:46 | Internal Med History&Physical ---
<Azeem Hadley - Last Filed: 11/11/18 03:12> Date of Encounter: 11/11/18 Time of Encounter: 01:25 Internal Medicine - H&P: HPI Chief complaint: Abnormal labs Admitted From: Emergency Dept Plans for Post Hospital Care: Home History of present illness: Ms. Baer is a 63 year old female with history of hypertension and recent admission for left tongue abscess who presents to the ED with complaint of ab normal labs found by outpatient provider. The patient was recently discharged from the hospital on 10/18/18 at which time he had been admitted for left tongue abscess that had been seen and evaluated by ENT, and she was discharged on Augmentin. She says that when she left she never started feeling completely better and she has had significant problems with feeling generally ill in the time since. She says that overall she is not feeling weak, nauseated and has had some vomiting. She is accompanied by her who says that she has had significant decrease in by mouth intake overall as well as some intermittent vomiting. Over the past 2-3 days, the patient has had significant vomiting and can barely keep down any oral intake. She said that she has not had fever, chills, sweats and this is really limited only to the vomiting. In the past 24 hours she said that she has vomited 7-8 times however she has not been able to keep down any food or liquids. She presented to her ENT office today for preop evaluation for a tongue biopsy and had preoperative labs drawn and apparently was told to present to the ED due to abnormally low potassium. She says the only real symptoms that she has been experiencing otherwise are cramps and pain in her lower extremities as well as a feeling that she cannot sit still. She otherwise has no acute complaints. She denies chest pains, shortness of breath, diaphoresis. She has had no diarrhea or hematochezia. She does have some limited constipation. She admits to history of high blood pressure and says that she has been taking her high blood pressure medications as prescribed. No changes in vision, denies headaches, paresthesias. In the emergency department the patient was found to have a significantly elevated blood pressure of 225/100, WBC 13.9, hemoglobin 17.5 platelet count 444. Her chemistry was very significant with a sodium of 129, potassium 2.1, chloride 89. In addition this, her serum creatinine was 1.15 and estimated GFR 48 which is a significant drop from prior. In addition, the patient did have a urinalysis showing significant protein >1000 and 3-[address] of the abdomen and pelvis showed 3.4cm infrarenal abdominal aortic aneurysm and cholelithiasis. EKG demonstrated sinus rhythm with PVCs and nonspecific ST-T wave changes not concerning for ischemia however he waves are indeterminate. The patient did receive 2 IV pushes of 20 mg labetalol while in the ED which did successfully drop her blood pressure to the 160/80 range. In addition of this, the patient received a bolus of fluids and was started on maintenance fluids. She also received 40 mEq by mouth ACL and was started on IV potassium. She is being admitted to medicine for further workup of hypokalemia and treatment. Past Med Surg Social Fam HX - Past Medical History Medical history: hypertension Additional medical history: Abcess of Tongue. Left Otalgia. Dysphagia. Weight Loss Psychiatric history: no psych history - Past Surgical History Surgical History: breast surgery - Social History Smoking Status: Current every day smoker Smokeless Tobacco Status: No Alcohol use: none Drug use: none Internal Medicine - H&P: Meds Losartan/Hydrochlorothiazide [Losartan-Hctz 100-25 mg Tab] 1 tab PO DAILY #0 03/28/17 [History] amLODIPine [Norvasc] 5 mg PO DAILY #0 03/28/17 [History] Citalopram [CeleXA] 20 mg PO DAILY 10/16/18 [History] hydrOXYzine HCl [Hydroxyzine HCl] 25 mg PO Q8H PRN 10/16/18 [History] Carvedilol [Coreg] 12.5 mg PO BID #30 tablet 10/18/18 [Rx] Allergy/AdvReac Type Severity Reaction Status Date / Time zomax AdvReac Hallucinating, Uncoded 11/10/18 13:39 Swelling, Rash All Systems PM: A 10-system review of systems was performed and is negative for pertinent findings except as documented above in the HPI. Review of systems: Constitutional: Denies fevers, chills, weight loss. Admits to generalized f atigue Head/Neck: Denies JAY, neck stiffness EENT: Denies vision changes/blurriness, rhinorrhea, congestion. Admits to sore throat which is improving CVS: Denies chest pain, palpitations, LANDIS, orthopnea, edema, PND Pulm: Denies SOB, cough, sputum, hemoptysis, wheezing GI: Denies abdominal pain, nausea, vomiting, diarrhea, constipation, melena, hematemasis : Denies dysuria, increased frequency, urgency, hematuria Heme: Denies ease of bleeding or bruising MSK: Denies joint pain, limited ROM. Admits to muscle cramping and spasms especially in her lower extremities. Skin: Denies rashes, ulcers, color changes Neuro: Denies JAY, paresthesias, focal deficits, ataxia - Constitutional Vitals: Temp Pulse Resp BP Pulse Ox 97.8 F 72 15 167/81 97 11/10/18 21:51 11/11/18 01:31 11/11/18 01:31 11/11/18 01:31 11/11/18 01:31 Exam: Gen: Vitals noted. No acute distress. Does appear mildly anxious Eyes: anicteric sclerae, moist conjunctivae; no lid-lag; Pupils equal and reactive to light HENT: Atraumatic; oropharynx clear with moist mucous membranes and no mucosal ulcerations; normal hard and soft palate. Poor dentition. No obvious ulcerations or abscess noted of the tongue. Neck: Trachea midline; supple, no thyromegaly. Mild left-sided cervical anterior lymphadenopathy noted Cardiac: RRR, no murmur, +S1/S2 Pulmonary: CTA bilaterally, no wheezes, rales or rhonchi, equal chest expansion Abdomen: soft, admits to tenderness on palpation of the abdomen globally, no guarding. No masses or hepatosplenomegaly MSK: ROM intact, no joint swelling noted Extremities: no BLE edema, nontender calf, no cyanosis or clubbing Skin: Normal temperature, turgor and texture; no rash, ulcers or subcutaneous nodules Neuro: moves all extremities, no focal deficits. Psych: Anxious appearing. A&Ox3 Internal Med - H&P Results - Labs CBC & Chem 7: 11/10/18 22:47 11/10/18 22:47 Labs: Short CBC 11/10/18 Range/Units 22:47 WBC 13.9 H (4.3-11.1) K/mcL Hgb 17.5 H (11.5-15.4) g/dL Hct 47.1 H (35.3-44.9) % Plt Count 444 H (140-400) K/mcL Neutrophils # 9.9 H (1.6-8.9) K/mcL BMP 11/10/18 22:47 Sodium 129 L Potassium 2.1 L* Chloride 89 L Carbon Dioxide 29 BUN 19 Creatinine 1.15 Glucose 156 H Calcium 8.5 L Cardiac Enzymes 11/10/18 Range/Units 22:47 Troponin I 0.04 H* (< 0.04) ng/mL Liver Function 11/10/18 Range/Units 22:47 Total Bilirubin 0.3 (0.3-1.0) mg/dL Direct Bilirubin 0.1 (0.0-0.2) mg/dL AST 26 (13-39) Units/L ALT 28 (7-52) Units/L Alkaline Phosphatase 171 H (34-104) Units/L Albumin 3.2 L (3.5-5.7) g/dL Urine 11/11/18 Range/Units 00:51 Urine Color Yellow (Yellow) Urine Clarity Clear (Clear) Urine pH 7.0 (5.0-8.0) pH Units Ur Specific [place] 1.015 (1.010-1.025) Urine Protein >=1000 H (Neg-Trace) mg/dL Urine Glucose (UA) 250 H (Normal) mg/dL - Impressions ITS Impressions Abdomen/Pelvis CT 11/10/18 22:44 IMPRESSION: No acute noncontrast abdominopelvic abnormality. 3.4 cm infrarenal abdominal aortic aneurysm. See below recommendation. Cholelithiasis. RECOMMENDATIONS: 3.4 cm abdominal aortic aneurysm. Recommend follow-up every 3 years. Reference: J Vasc Surg 2009 Oct;50(4 Suppl):S2-49. D/ / Mar Lobo Cha, MD / Mar Lobo Cha, MD Interpreting Provider: Mar Lobo Cha, MD - Assessment and Plan (1) Hypokalemia Current Visit: Yes Status: Acute Assessment and plan: Severe hypokalemia likely secondary to decreased by mouth intake and vomiting In addition of this, the patient is on losartan-HCTZ, may also play a role and potassium loss The patient also does have an NEGRITA on top of this EKG concerning for changes related to hypokalemia Plan Admit to telemetry Check magnesium, repeat BMP Received 40mEq PO KCl, 40mEq IV KCl Will likely need to repeat these doses following completion Check urine Sodium, Potassium, Creatinine, Urea Supportive care of nausea/vomiting (2) NEGRITA (acute kidney injury) Current Visit: Yes Status: Acute Assessment and plan: NEGRITA, likely secondary to prerenal causes Serum creatinine 1.27 -> 1.15, up from baseline ~0.6. eGFR 48 Patient has had significant nausea and vomiting, decreased PO intake Concerning is that the patient does have >1000 protein in her urine, no documented history of proteinuria We will check urine electrolyte studies Urine protein creatinine ratio Consider nephrology consult in AM (3) Hyponatremia Current Visit: Yes Status: Acute Assessment and plan: Acute hyponatremia, suspected secondary to GI loss. Na 129, Chloride 129 Patient received 1L Sodium chloride in ED, started on maintenance fluids at 125mL/hr Repeat BMP at 4am, goal correction 6-8mEq in 24hr (4) Nausea & vomiting Current Visit: Yes Status: Acute Assessment and plan: Nausea and vomiting, electrolyte changes consistent Patient presents with elevated QTc most likely due to electrolyte disturbance Will avoid QT prolonging drugs at this time Ativan for n/v at this time Qualifiers: Vomiting type: unspecified Vomiting Intractability: non-intractable Qualified Code(s): R11.2 - Nausea with vomiting, unspecified (5) HTN (hypertension) Current Visit: Yes Status: Acute Assessment and plan: Hypertensive urgency, BP 220/100 on admission Patient received IV Labetalol in ED which was effective in dropping BP Will aim for 20% drop in BP, Continue PRN IV Labetalol. Goal SBP 180-220 Continue home amlodipine, hold losartan-HCTZ. Confirm Coreg Qualifiers: Hypertension type: essential hypertension Qualified Code(s): I10 - Essential (primary) hypertension (6) Anxiety Current Visit: No Status: Chronic Assessment and plan: History of anxiety QTc 484 on EKG with significant electrolyte abnormality Will avoid QT prolonging meds at this time, including vistaril PRN Ativan may be useful for anxiety and N/V (7) Aneurysm of infrarenal abdominal aorta Current Visit: Yes Status: Acute Assessment and plan: Incidental finding on CT abdomen/pelvis Will recommend PCP follow-up (8) Elevated glucose Current Visit: Yes Status: Acute Assessment and plan: Patient has elevated fasting and proteinuria, along with glucose in urine Will check HgA1C (9) DVT prophylaxis Current Visit: Yes Status: Acute Assessment and plan: SQ Heparin - Time Spent With Patient Total time spent is greater than 50% in coordination of care (as documented) at patient's floor/unit and/or counseling patient: <Tomasz Bennett - Last Filed: 11/11/18 04:44> Date of Encounter: 11/11/18 Time of Encounter: 04:00 - Constitutional Constitutional: no chills, no fever(s) - EENT Eyes: no blurry vision, no change in vision Ears: no ear pain, no tinnitus Nose, mouth and throat: no sore throat - Cardiovascular Cardiovascular ROS IM: no chest pain, no dyspnea - Respiratory Respiratory: no cough, no chest congestion - Gastrointestinal Gastrointestinal: nausea, vomiting, no abdominal pain, no coffee ground emesis, no diarrhea, no hematemesis, no hematochezia, no melena - Genitourinary Genitourinary: no dysuria, no flank pain, no hematuria - Musculoskeletal Musculoskeletal ROS IM: muscle cramps, no arthralgias, no back pain - Integumentary Integumentary IM: no rash, no jaundice - Neurological Neurological ROS: headache(s), no disequilibrium, no dizziness, no focal weakne ss, no frequent falls - Psychiatric Psychiatric: no anxiety, no depression - Endocrine Endocrine IM: no polydipsia, no polyphagia, no polyuria - Allergic/Immunologic Allergic/Immunologic: GI upset with certain foods - Constitutional Vitals: Temp Pulse Resp BP Pulse Ox 99.2 F 70 18 174/86 98 11/11/18 03:04 11/11/18 03:04 11/11/18 03:04 11/11/18 03:04 11/11/18 03:04 General appearance: Present: cooperative, A&O X 3, pleasant, no acute distress, answers questions appropriately Exam: looks dry - Head Head exam: Present: atraumatic, normal inspection - Eye Eye exam: Present: EOMI, PERRL. Absent: scleral icterus Pupils: Present: normal accommodation - ENT ENT exam: Present: mucous membranes dry - Neck Neck exam general surgery: Present: supple, trachea midline. Absent: lymphad enopathy - Respiratory Respiratory exam: Present: CTAB. Absent: chest wall tenderness, rales, rhonchi, wheezes, tachypnea - Cardiovascular Cardiovascular exam: Present: distant heart sounds, +S1, +S2. Absent: diastolic murmur, systolic murmur - GI/Abdominal GI/Abdominal exam: Present: soft. Absent: hepatomegaly, normal bowel sounds, rebound, splenomegaly - Extremities Exam Extremities exam: Present: normal capillary refill, warm, radial pulses palpable and symmetrical. Absent: calf tenderness, joint swelling, pedal edema - Back Exam Back exam: Absent: CVA tenderness (L), CVA tenderness (R) - Neurological Exam Neurological exam: Present: alert, CN II-XII intact, oriented X3, no focal deficits - Psychiatric Psychiatric exam: Present: normal affect, normal mood - Skin Skin exam: Present: dry, intact, warm Internal Med - H&P Results - Labs CBC & Chem 7: 11/10/18 22:47 11/10/18 22:47 Labs: Short CBC 11/10/18 Range/Units 22:47 WBC 13.9 H (4.3-11.1) K/mcL Hgb 17.5 H (11.5-15.4) g/dL Hct 47.1 H (35.3-44.9) % Plt Count 444 H (140-400) K/mcL Neutrophils # 9.9 H (1.6-8.9) K/mcL BMP 11/10/18 22:47 Sodium 129 L Potassium 2.1 L* Chloride 89 L Carbon Dioxide 29 BUN 19 Creatinine 1.15 Glucose 156 H Calcium 8.5 L Cardiac Enzymes 11/10/18 Range/Units 22:47 Troponin I 0.04 H* (< 0.04) ng/mL Liver Function 11/10/18 Range/Units 22:47 Total Bilirubin 0.3 (0.3-1.0) mg/dL Direct Bilirubin 0.1 (0.0-0.2) mg/dL AST 26 (13-39) Units/L ALT 28 (7-52) Units/L Alkaline Phosphatase 171 H (34-104) Units/L Albumin 3.2 L (3.5-5.7) g/dL Urine 11/11/18 Range/Units 00:51 Urine Color Yellow (Yellow) Urine Clarity Clear (Clear) Urine pH 7.0 (5.0-8.0) pH Units Ur Specific [place] 1.015 (1.010-1.025) Urine Protein >=1000 H (Neg-Trace) mg/dL Urine Glucose (UA) 250 H (Normal) mg/dL - Impressions ITS Impressions Abdomen/Pelvis CT 11/10/18 22:44 IMPRESSION: No acute noncontrast abdominopelvic abnormality. 3.4 cm infrarenal abdominal aortic aneurysm. See below recommendation. Cholelithiasis. RECOMMENDATIONS: 3.4 cm abdominal aortic aneurysm. Recommend follow-up every 3 years. Reference: J Vasc Surg 2009 Jan;50(4 Suppl):S2-49. D/ / Mar Lobo Cha, MD / Mar Lobo Cha, MD Interpreting Provider: Mar Lobo Cha, MD - Time Spent With Patient Total time spent is greater than 50% in coordination of care (as documented) at patient's floor/unit and/or counseling patient: - Attending Attestation I discussed the patient [place], past medical history, review of systems, lab data, imaging data, and exam findings with Dr. Hadley. I then saw and examined patient independently as well. She does appear somewhat dehydrated. She complains of protracted nausea and vomiting. However, her nausea and vomiting stopped with antiemetics treatment in the ER. She states her nausea and vomiting coincided with her headaches. She has been having more headaches frequently and lately. They are intense and severe and associated with protracted nausea and vomiting. Because of these symptoms and presentation, I am going order CT of the head to rule out any increased intracranial pressure. Meanwhile, I agree with IV fluid hydration and potassium correction. She denies any chest pains or palpitations. I suspect her troponin elevation to be secondary to demand ischemia and stress associated with her nausea vomiting and dehydration. Other than my comments above and documented exam findings, I agree with Dr. Hadley's assessment and plan.
[2018-11-11] MEDS ORDERED: Naloxone 0.4 MG/ML INJ IVP PRN (01:47)
[2018-11-11 02:05] LABS: Magnesium 2.2 mg/dL (1.6-2.6)
[2018-11-11] MEDS ORDERED: POTASSIUM CHLORIDE IVC SCH (03:15)
[2018-11-11] MEDS ORDERED: SODIUM CHLORIDE 0.9% IVC SCH (03:15)
[2018-11-11] MEDS: Acetaminophen 325 MG TABLET PO PRN (03:27)
[2018-11-11] MEDS: *HR* Heparin 5,000 UNIT/ML VIAL SQ SCH ×3 (04:26→20:41)
[2018-11-11] MEDS ORDERED: Isovue-370 500 ML BOTTLE IVP ONE (04:33)
[2018-11-11] MEDS: Nicotine 21 MG PATCH.TD24 TD SCH (04:33)
[2018-11-11 07:29] LABS: Basophils % 0.4 %; Eosinophils % 0.3 %; Hematocrit 38.4 % (35.3-44.9); Immature Granulocytes % 0.4 % (0-4); Lymphocytes # 3.2 K/mcL (0.6-4.6); Lymphocytes % 29.6 %; Mean Corpuscular HGB Conc 36.7 g/dL (31.6-35.5); Mean Corpuscular Hemoglobin 31.3 pg (28.0-33.3); Mean Corpuscular Volume 85.1 fL (83.0-100.0); Mean Platelet Volume 8.9 fL (9.4-12.4); Monocytes # 0.8 K/mcL (0.0-1.3); Monocytes % 7.2 %; Neutrophils # 6.7 K/mcL (1.6-8.9); Platelet Count 390 K/mcL (140-400); Red Blood Count 4.51 M/mcL (3.82-4.97); Red Cell Distribution Width 12.8 % (11.5-14.5); Segmented Neutrophils % 62.1 %; White Blood Count 10.8 K/mcL (4.3-11.1)
[2018-11-11 07:53] LABS: Troponin I 0.03 ng/mL (< 0.04)
[2018-11-11 07:58] LABS: Calcium 7.7 mg/dL (8.6-10.3); Chol/HDL Ratio 6.1 (0-4.9); Potassium 2.8 mEq/L (3.5-5.1)
[2018-11-11 08:04] LABS: Hemoglobin 14.1 g/dL (11.5-15.4)
[2018-11-11 08:06] LABS: Thyroid Stimulating Hormone 1.562 mcIU/mL (0.340-5.600)
[2018-11-11 08:32] LABS: Estimated Average Glucose 117 mg/dl
[2018-11-11 08:47] LABS: Potassium,Urine 45.3 mEq/L; Sodium, Urine 23.3 mEq/L
--- NOTE | 2018-11-11 08:58 | Internal Med Progress Note ---
Hospitalist Progress Note - Encounter Date of Encounter: 11/11/18 Time of Encounter: 08:58 - Subjective Interval History: Patient is sleeping upon entering room, but easily arouses to voice commands. Patient states she is artificially feeling much better after getting the IV fluids. Patient denies chest pain, shortness of breath, abdominal pain, nausea, vomiting, diarrhea, fever, or chills. - Exam Vitals: Temp Pulse Resp BP Pulse Ox 97.8 F 69 16 146/127 96 11/11/18 07:35 11/11/18 07:35 11/11/18 07:35 11/11/18 07:35 11/11/18 07:35 Exam: Gen: Vitals noted. No acute distress. Eyes: anicteric sclerae, moist conjunctivae; EOMI HENT: Atraumatic; oropharynx clear with moist mucous membranes. Poor dentition. Neck: Trachea midline; supple, no thyromegaly. Cardiac: RRR, no murmur, +S1/S2 Pulmonary: CTA bilaterally, no wheezes, rales or rhonchi, equal chest expansion Abdomen: soft, slight diffuse abdominal tenderness, no guarding. No masses or hepatosplenomegaly MSK: ROM intact, no joint swelling noted Extremities: no BLE edema, nontender calf Skin: Normal temperature, turgor and texture; Neuro: moves all extremities, no focal deficits. Psych: Normal affect. A&Ox3 - Assessment and Plan (1) Hypokalemia Current Visit: Yes Status: Acute Assessment and Plan: Severe hypokalemia likely secondary to decreased by mouth intake and vomiting, with use of losartan-HCTZ. Potassium of 2.1 on admission, given 40 meq by mouth as well as 60 meq IV -Potassium up to 2.8 -Give 40 meq PO of Potassium -Monitor for continued improvement (2) Hyponatremia Current Visit: Yes Status: Acute Assessment and Plan: Sodium of 129 in ED, suspected secondary to GI loss. 1 L NS given an ED with maintenance fluids started at 125 mL/hr Sodium up to 135 on repeat BMP at 4:00 -Na normalizing following IVF. Pt hungry and wants to eat d/c IVFs and monitor for improvement following PO intake. (3) NEGRITA (acute kidney injury) Current Visit: Yes Status: Acute Assessment and Plan: Patient's initial labs showed creatinine of 1.27 has normalized follow IVF Patient with significant nausea and vomiting as well as decreased by mouth intake prior to admission -Test Tube Maker normalized, will d/c IV fluids as patient is able to take in fluids PO and monitor for changes. -Urine total protein of 2067, will get 24 hour protein/creatinine (4) Accelerated hypertension Current Visit: Yes Status: Acute Assessment and Plan: Pt with an initial BP of 223/115. IV Labetalol given in ED with effective drop in BP Pt without sxs and states this is a chronic issue with reads at home that have been elevated consistently. -BP controlled currently -PRN IV Labetalol -Continue home amlodipine -Holding Losartan-HCTZ due to hypokalemia. (5) Nausea & vomiting Current Visit: Yes Status: Resolved Assessment and Plan: Resolved. Nausea and vomiting, electrolyte changes consistent. No nausea at this time. Pt is requesting food. Patient presents with elevated QTc most likely due to electrolyte disturbance Will avoid QT prolonging drugs at this time -Ativan for n/v at this time (6) Asymptomatic proteinuria Current Visit: Yes Status: Acute Assessment and Plan: Total spot protein of over 2000 Could be related to Accelerated HTN or longstanding HTN -24 hour Creatinine to be performed -continue to monitor for sxs (7) Hyperlipidemia Current Visit: Yes Status: Acute Assessment and Plan: Pt with Cholesterol of 321 and TG of 222 with a calculated ASCVD risk score of 17.9% -Started pt on crestor 20 mg daily. DVT Prophylaxis: DVT prophylaxis with Heparin SubQ - Time Spent with Patient Total time spent is greater than 50% in coordination of care (as documented) at patient's floor/unit and/or counseling patient: Internal Medicine: Result - Labs CBC & Chem 7: 11/11/18 07:01 11/11/18 12:25 Labs: Short CBC 11/10/18 11/11/18 Range/Units 22:47 07:01 WBC 13.9 H 10.8 (4.3-11.1) K/mcL Hgb 17.5 H 14.1 D (11.5-15.4) g/dL Hct 47.1 H 38.4 (35.3-44.9) % Plt Count 444 H 390 (140-400) K/mcL Neutrophils # 9.9 H 6.7 (1.6-8.9) K/mcL BMP 11/10/18 11/11/18 22:47 07:01 Sodium 129 L 135 L Potassium 2.1 L* 2.8 L D Chloride 89 L 97 L Carbon Dioxide 29 29 BUN 19 17 Creatinine 1.15 1.12 Glucose 156 H 94 Calcium 8.5 L 7.7 L Cardiac Enzymes 11/10/18 11/11/18 Range/Units 22:47 07:01 Troponin I 0.04 H* 0.03 (< 0.04) ng/mL Liver Function 11/10/18 Range/Units 22:47 Total Bilirubin 0.3 (0.3-1.0) mg/dL Direct Bilirubin 0.1 (0.0-0.2) mg/dL AST 26 (13-39) Units/L ALT 28 (7-52) Units/L Alkaline Phosphatase 171 H (34-104) Units/L Albumin 3.2 L (3.5-5.7) g/dL Urine 11/11/18 Range/Units 00:51 Urine Color Yellow (Yellow) Urine Clarity Clear (Clear) Urine pH 7.0 (5.0-8.0) pH Units Ur Specific [place] 1.015 (1.010-1.025) Urine Protein >=1000 H (Neg-Trace) mg/dL Urine Glucose (UA) 250 H (Normal) mg/dL - ABG Interpretation ABG results: PT/INR, D-dimer PT 10.3 Seconds (9.4-12.1) 11/10/18 22:47 - Impressions Impressions Abdomen/Pelvis CT 11/10/18 22:44 IMPRESSION: No acute noncontrast abdominopelvic abnormality. 3.4 cm infrarenal abdominal aortic aneurysm. See below recommendation. Cholelithiasis. RECOMMENDATIONS: 3.4 cm abdominal aortic aneurysm. Recommend follow-up every 3 years. Reference: J Vasc Surg 2009 Oct;50(4 Suppl):S2-49. D/ / Mar Lobo Cha, MD / Mar Lobo Cha, MD Interpreting Provider: Mar Lobo Cha, MD Consult Discharge Plan - Plan Referrals: Chuck Rolon DO [Primary Care Provider] - (5) Nausea & vomiting Qualifiers: Vomiting type: unspecified Vomiting Intractability: non-intractable Qualified Code(s): R11.2 - Nausea with vomiting, unspecified
[2018-11-11] MEDS ORDERED: amLODIPine 5 MG TABLET PO SCH (09:00)
[2018-11-11 13:28] LABS: Calcium 7.4 mg/dL (8.6-10.3); Potassium 2.9 mEq/L (3.5-5.1)
[2018-11-11] MEDS: *HR* Labetalol 20 MG/4 ML SYRINGE IVP PRN ×2 (13:53→15:09)
[2018-11-11] MEDS ORDERED: amLODIPine 5 MG TABLET PO ONE (14:15)
[2018-11-11] MEDS ORDERED: Sennosides/Docusate Sodium TABLET PO PRN (17:22)
[2018-11-12] MEDS: Acetaminophen 325 MG TABLET PO PRN (00:58)
[2018-11-12 04:04] LABS: Hematocrit 38.3 % (35.3-44.9); Hemoglobin 13.5 g/dL (11.5-15.4); Mean Corpuscular HGB Conc 35.2 g/dL (31.6-35.5); Mean Corpuscular Hemoglobin 31.3 pg (28.0-33.3); Mean Corpuscular Volume 88.7 fL (83.0-100.0); Mean Platelet Volume 8.9 fL (9.4-12.4); Platelet Count 359 K/mcL (140-400); Red Blood Count 4.32 M/mcL (3.82-4.97); Red Cell Distribution Width 13.1 % (11.5-14.5); White Blood Count 9.2 K/mcL (4.3-11.1)
[2018-11-12 04:20] LABS: Calcium 7.8 mg/dL (8.6-10.3); Potassium 3.4 mEq/L (3.5-5.1)
[2018-11-12] MEDS: *HR* Heparin 5,000 UNIT/ML VIAL SQ SCH ×3 (06:02→20:24)
--- NOTE | 2018-11-12 08:01 | Electrocardiograph Report ---
[employer] Test Date: 2018-11-10 Pat Name: Jacqueline Baer Department: 104 Room: 2A12 Gender: F Manager Of Marketing: [place] : 1955 Requested By: Arturo Kraus Order Number: [id number] Reading MD: Nathan Adamson Measurements Intervals [place] Rate: 82 P: 31 [place]: 176 QRS: 39 QRSD: 95 T: 155 QT: 476 QTc: 514 Interpretive Statements SINUS RHYTHM VOLTAGE CRITERIA FOR LVH NONSPECIFIC ST & T-WAVE ABNORMALITY PROLONGED QT INTERVAL Electronically Signed On 11-12-2018 7:59:05 EDT by Nathan Adamson
[2018-11-12] MEDS: amLODIPine 5 MG TABLET PO SCH (08:43)
[2018-11-12] MEDS: Nicotine 21 MG PATCH.TD24 TD SCH (08:43)
--- NOTE | 2018-11-12 09:34 | Internal Med Progress Note ---
<Ru Reynaga N - Last Filed: 11/12/18 16:22> Hospitalist Progress Note - Encounter Date of Encounter: 11/12/18 Time of Encounter: 09:32 - Subjective Interval History: Patient states she is feeling pretty good today. Patients only complaint at this time is that she is hungry and thirsty due to being nothing by mouth for ultrasound this morning. Patient is hungry with no nausea at this time. Patient denies vomiting, chest pain, shortness of breath, cough, fever, chills, or abdominal pain. - Exam Vitals: Temp Pulse Resp BP Pulse Ox 98.2 F 75 18 189/73 95 11/12/18 06:45 11/12/18 06:45 11/12/18 06:45 11/12/18 06:45 11/12/18 06:45 Exam: Gen: Vitals noted. No acute distress. Eyes: anicteric sclerae, moist conjunctivae; EOMI HENT: Atraumatic; oropharynx clear with moist mucous membranes. Poor dentition. Neck: Trachea midline; supple, no thyromegaly. Cardiac: RRR, no murmur, +S1/S2 Pulmonary: expiratory wheezes throughout. No rales or rhonchi, equal chest expansion Abdomen: soft, slight diffuse abdominal tenderness, no guarding. No masses or hepatosplenomegaly MSK: ROM intact, no joint swelling noted Extremities: no BLE edema, nontender calf Skin: Normal temperature, turgor and texture; Neuro: moves all extremities, no focal deficits. Psych: Normal affect. A&Ox3 - Assessment and Plan (1) Hypokalemia Current Visit: Yes Status: Acute Assessment and Plan: Severe hypokalemia likely secondary to decreased by mouth intake and vomiting, with use of losartan-HCTZ. Potassium of 2.1 on admission, given 40 meq by mouth as well as 60 meq IV Potassium up to 3.4 -Give 20 meq PO of Potassium -Monitor for continued improvement (2) Hyponatremia Current Visit: Yes Status: Acute Assessment and Plan: Sodium of 129 in ED, suspected secondary to GI loss. 1 L NS given an ED with maintenance fluids started at 125 mL/hr Sodium up to 134 Na normalizing following IVF. -Na improved. Pt continues to take in PO fluids and food -Continue to monitor for changes. (3) NEGRITA (acute kidney injury) Current Visit: Yes Status: Acute Assessment and Plan: Resolved. Patient's initial labs showed creatinine of 1.27 has normalized follow IVF Patient with significant nausea and vomiting as well as decreased by mouth intake prior to admission Renal US showing atrophy of the left kidney -Nephrology consulted, will follow recommendations -Program Strategist normalized and patient continues PO hydration. -Awaiting 24 hour protein/creatinine (4) Accelerated hypertension Current Visit: Yes Status: Acute Assessment and Plan: Pt with an initial BP of 223/115. IV Labetalol given in ED with effective drop in BP Pt without sxs and states this is a chronic issue with reads at home that have been elevated consistently. BP remains elevated despite putting pt on Norvasc 10 mg, Coreg 25 mg BID, Losartan 100 mg, and hydralazine 10 mg PRN q6h. -Waiting for Renal US results -Continue to monitor (5) Asymptomatic proteinuria Current Visit: Yes Status: Acute Assessment and Plan: Total spot protein of over 2000 Could be related to Accelerated HTN or longstanding HTN Program Strategist normalized after initial NEGRITA -24 hour Protein/Creatinine to be performed -continue to monitor for sxs (6) Nausea & vomiting Current Visit: Yes Status: Resolved Assessment and Plan: Resolved. Nausea and vomiting, electrolyte changes consistent. No nausea at this time. Pt is requesting food. (7) Hyperlipidemia Current Visit: Yes Status: Acute Assessment and Plan: Pt with Cholesterol of 321 and TG of 222 with a calculated ASCVD risk score of 17.9% -Continue pt on crestor 20 mg daily. (8) Constipation Current Visit: Yes Status: Acute Assessment and Plan: Pt complaining of constipation. Bowel regimen started last night including soap suds enema, Senna Plus, and Miralax Still feels constipated despite a small bowel movement following enema CT scan done in ED shows no sign of bowel obstruction -Continue current regimen DVT Prophylaxis: DVT prophylaxis with Heparin SubQ - Time Spent with Patient Total time spent is greater than 50% in coordination of care (as documented) at patient's floor/unit and/or counseling patient: Internal Medicine: Result - Labs CBC & Chem 7: 11/12/18 03:39 11/12/18 03:39 Labs: Short CBC 11/12/18 Range/Units 03:39 WBC 9.2 (4.3-11.1) K/mcL Hgb 13.5 (11.5-15.4) g/dL Hct 38.3 (35.3-44.9) % Plt Count 359 (140-400) K/mcL BMP 11/11/18 11/11/18 11/12/18 12:25 17:23 03:39 Sodium 132 L 134 L Potassium 2.9 L 3.5 3.4 L Chloride 99 102 Carbon Dioxide 26 25 BUN 15 15 Creatinine 1.16 1.15 Glucose 92 108 H Calcium 7.4 L 7.8 L - ABG Interpretation ABG results: PT/INR, D-dimer PT 10.3 Seconds (9.4-12.1) 11/10/18 22:47 - Impressions Impressions Head CT 11/11/18 04:33 IMPRESSION: No acute intracranial abnormality. No abnormal intracranial enhancement. Patchy white matter low attenuation compatible with chronic microvascular ischemic changes. Old left basal ganglia lacunar infarctions. D/ / Cedric Emmanuel MD / Cedric Emmanuel MD Interpreting Provider: Cedric Emmanuel MD Consult Discharge Plan - Plan Referrals: Chuck Rolon DO [Primary Care Provider] - <Faiza Moctezuma - Last Filed: 11/12/18 17:06> Hospitalist Progress Note - Encounter Date of Encounter: 11/12/18 - Exam Vitals: Temp Pulse Resp BP Pulse Ox 97.9 F 69 19 122/67 98 11/12/18 15:46 11/12/18 15:46 11/12/18 15:46 11/12/18 15:46 11/12/18 15:46 - Time Spent with Patient Total time spent is greater than 50% in coordination of care (as documented) at patient's floor/unit and/or counseling patient: Internal Medicine: Result - Labs CBC & Chem 7: 11/12/18 03:39 11/12/18 03:39 Labs: Short CBC 11/12/18 Range/Units 03:39 WBC 9.2 (4.3-11.1) K/mcL Hgb 13.5 (11.5-15.4) g/dL Hct 38.3 (35.3-44.9) % Plt Count 359 (140-400) K/mcL BMP 11/11/18 11/12/18 17:23 03:39 Sodium 134 L Potassium 3.5 3.4 L Chloride 102 Carbon Dioxide 25 BUN 15 Creatinine 1.15 Glucose 108 H Calcium 7.8 L - ABG Interpretation ABG results: PT/INR, D-dimer PT 10.3 Seconds (9.4-12.1) 11/10/18 22:47 - Impressions Impressions Retroperitoneum Ultrasound 11/12/18 14:00 IMPRESSION: 1. Cortical atrophy of the interpolar and lower pole cortex of the left kidney 2. No hydronephrosis. No abnormality in the right kidney. D/ / 11/12/2018 15:15:27 Darion Hanks MD / bcarter Interpreting Provider: Darion Hanks MD - Attending Attestation I have seen and independently assessed this patient and I agree with plan as documented Plan Uncontrolled hypertension. Resume home meds of amlodipine, coreg and losartan. Titrate BP meds as tolerated Hypokalemia. Replace potassium. Restart losartan Proteinuria. Unclear etiology. Renal recs appreciated. Continue ARB Acute kidney injury. Continue IV fluid hydration <Ru Reynaga - Last Filed: 11/12/18 16:22> (6) Nausea & vomiting Qualifiers: Vomiting type: unspecified Vomiting Intractability: non-intractable Qualified Code(s): R11.2 - Nausea with vomiting, unspecified (8) Constipation Qualifiers: Qualified Code(s): K59.00 - Constipation, unspecified
--- NOTE | 2018-11-12 11:04 | Nephrology Consult Note ---
Date of Encounter: 11/12/18 Time of Encounter: 10:57 Assessment and Plan (1) NEGRITA (acute kidney injury) Current Visit: Yes Status: Acute In September of this year GFR is greater than 60. GFR is 48 today. NS at 100/hr ordered x 2 liters. Unsure if this is a new baseline or considered an acute kidney injury related to NSAIDs, poor by mouth intake, and dehydration at home. NEGRITA and CKD workup ordered. Avoid nephrotoxins and renal dose all medications. Strict I&O Daily weights. Will follow up with Dr. Lentz in the office in 4-6 weeks. BMP 1 week before. (2) Constipation Current Visit: Yes Status: Acute Per primary. Qualifiers: Qualified Code(s): K59.00 - Constipation, unspecified (3) Hypokalemia Current Visit: Yes Status: Acute 40 meq K ordered for 1200 and 1700 today. (4) Hyponatremia Current Visit: Yes Status: Acute Improved 134, initial was 129. TSH, uric acid, and Cortisol odered. Serum osmo ordered. History of Present Illness - Reason for Consult Consult date: 11/12/18 hyponatremia, hypokalemia Requesting physician: Marcell Cox - Chief Complaint hypokalemia - History of Present Illness Ms. Baer is a 63 year old female who presented at the request of her PCP. Initial potassium was 2.1 and initial sodium was 129. PMH: Hypertension. She states that overall for the past month she is does not feel well. She has felt fatigued and had nausea with emesis. She also reports constipation with only having small bowel movements every couple of days. Denies chest pain or shortness of breath. Hypokalemia and hyponatremia are most likely related to dehydration with emesis at home. In September of this year GFR was greater than 60. Today it is only 48. She does admit to me that she uses NSAIDs almost daily. She takes 800 mg twice or sometimes 3 times a day. She takes the Motrin for headaches and muscle aches. Advised her to stop at this time and switch to Tylenol. Unsure if she has some underlying chronic kidney disease at this point or if this is considered an acute kidney injury. Dehydration along with the NSAIDs could be playing a part in decreased GFR. Will order NEGRITA and chronic kidney disease workup. Denies family history of chronic kidney disease or hemodialysis. She is a 1-1/2 pack a day smoker. Denies EtOH or illicit drug use. Past Med Surg Social Fam HX - Past Medical History Medical history: hypertension Additional medical history: Abcess of Tongue. Left Otalgia. Dysphagia. Weight Loss Psychiatric history: anxiety - Past Surgical History Surgical History: breast surgery - Social History Smoking Status: Current every day smoker Packs per day: 1.5 Smokeless Tobacco Status: No Alcohol use: none Drug use: none Medications and Allergies Losartan/Hydrochlorothiazide [Losartan-Hctz 100-25 mg Tab] 1 tab PO DAILY #0 03/28/17 [History] Citalopram [CeleXA] 20 mg PO DAILY 10/16/18 [History] hydrOXYzine HCl [Hydroxyzine HCl] 25 mg PO Q8H PRN 10/16/18 [History] Carvedilol [Coreg] 12.5 mg PO BID #30 tablet 10/18/18 [Rx] Amlodipine Besylate 10 mg PO DAILY 11/11/18 [History] Allergy/AdvReac Type Severity Reaction Status Date / Time zomax AdvReac Hallucinating, Uncoded 11/10/18 13:39 Swelling, Rash Review of Systems All Systems review (narrative): Remainder of the systems are negative. Constitutional: fatigue, no chills, no fever(s) Cardiovascular: no chest pain, no dyspnea, no edema Gastrointestinal: change in stool character, constipation, nausea, vomiting, no diarrhea Exam - Vital Signs Vital signs: Initial Vital Signs Temp Pulse Resp BP Pulse Ox 97.8 F 90 16 223/115 98 11/10/18 21:51 11/10/18 21:51 11/10/18 21:51 11/10/18 21:51 11/10/18 21:51 Vital Signs - Last 8 Hours Temp Pulse Resp BP Pulse Ox 11/12/18 06:45 98.2 F 75 18 189/73 95 11/12/18 04:43 97.7 F 61 18 183/77 94 Intake and Output 11/11/18 11/12/18 11/12/18 23:59 07:59 15:59 Intake Total 220 / 1420 Balance 220 / 1420 Intake: IV Fluids 100 / 1300 Potassium Chloride 10 mEq/100mL 100 / 300 10 meq In 100 ml @ 100 mls/hr IVPB Q1H [facility] Rx#:[id number] Oral 120 / 120 Other: Meal Dinner Percent of Meal Consumed 25% - General Appearance General appearance: chronically ill, frail EENT: ATNC, hearing intact, vision intact Neck: supple Respiratory: clear Cardiology: no edema, normal S1, normal S2 Gastrointestinal: normoactive bowel sounds, no tenderness, no guarding Integumentary: no rash, warm and dry Neurologic: alert and oriented x3 Musculoskeletal: no deformities, no erythema Psychiatric: mood/affect appropriate, cooperative Results - Lab Results 11/12/18 03:39 11/12/18 03:39 Most recent lab results 11/12/18 03:39 Calcium 7.8 L Consult Discharge Plan - Plan Referrals: Chuck Rolon DO [Primary Care Provider] -
[2018-11-12] MEDS ORDERED: 0.9 % Sodium Chloride 500 ML IV ONE (11:11)
[2018-11-12] MEDS ORDERED: 0.9 % Sodium Chloride 1,000 ML IVC SCH (11:30)
[2018-11-12 12:01] LABS: Uric Acid 4.2 mg/dL (2.3-7.6)
[2018-11-13 00:41] LABS: Total Volume 24 Hour,Urine 1.57 Liters (0.60-1.60)
[2018-11-13] MEDS: Acetaminophen 325 MG TABLET PO PRN ×2 (01:44→21:30)
[2018-11-13 03:12] LABS: Protein/Creatinine Ratio,Urine 18.63 mg/mg (0.00-0.20)
[2018-11-13 05:19] LABS: Hematocrit 37.9 % (35.3-44.9); Mean Corpuscular HGB Conc 34.3 g/dL (31.6-35.5); Mean Corpuscular Hemoglobin 31.2 pg (28.0-33.3); Mean Corpuscular Volume 90.9 fL (83.0-100.0); Platelet Count 384 K/mcL (140-400); Red Blood Count 4.17 M/mcL (3.82-4.97); Red Cell Distribution Width 13.6 % (11.5-14.5); White Blood Count 8.9 K/mcL (4.3-11.1)
[2018-11-13 05:31] LABS: Rheumatoid Factor 11 IU/mL (Less than 14)
[2018-11-13 05:32] LABS: Complement C3 118 mg/dL (87-200)
[2018-11-13 05:33] LABS: Calcium 7.8 mg/dL (8.6-10.3); Potassium 3.9 mEq/L (3.5-5.1)
[2018-11-13] MEDS: *HR* Heparin 5,000 UNIT/ML VIAL SQ SCH ×3 (05:45→15:37)
[2018-11-13 05:48] LABS: Thyroid Stimulating Hormone 3.17 mcIU/mL (0.340-5.600)
--- NOTE | 2018-11-13 07:17 | Discharge Summary ---
- NOTES TO OUTPATIENT PROVIDER Notes to Outpatient Provider: Pt came in for Hypokalemia/hyponatremia secondary to n/v and decreased po intake. Pt BP was elevated and UA should large amounts of protein. 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 Kidney US should atrophy of the left kidney and a biopsy was done. Pt to have f/u with nephro in 4-6 weeks. Repeat BMP in 1 week. Orders not resulted at time of discharge: Pending orders 11/11/18 06:00 EKG [ECG 12 lead ECG] [ECG] AM 0600 11/12/18 22:40 Immunofixation,Urine (BJP) Routine 11/13/18 04:03 REGINA IgG MERNA rflx IFA AM 0400 MPO/PR3 (ANCA) Antibodies Routine Protein Electrophoresis AM 0400 Rheumatoid Factor AM 0400 Vitamin D 25 Hydroxy AM 0400 Date of Encounter: 11/14/18 Time of Encounter: 07:14 - Discharge Diagnosis (1) Hypokalemia Priority: Primary Status: Resolved (2) Hyponatremia Priority: Secondary Status: Resolved (3) NEGRITA (acute kidney injury) Priority: Secondary Status: Resolved (4) Accelerated hypertension Priority: Secondary Status: Acute (5) Asymptomatic proteinuria Priority: Secondary Status: Acute (6) Nausea & vomiting Priority: Secondary Status: Resolved Qualifiers: Vomiting type: unspecified Vomiting Intractability: non-intractable Qualified Code(s): R11.2 - Nausea with vomiting, unspecified (7) Hyperlipidemia Priority: Secondary Status: Acute (8) Constipation Priority: Secondary Status: Resolved Qualifiers: Qualified Code(s): K59.00 - Constipation, unspecified Hospital course: Ms. Baer is a 63 year old female Discharge discussed with: patient - Time Spent with Patient Total time spent providing and/or coordinating discharge services: Time spent: Greater than 30 minutes - Discharge Medications Prescriptions: New Losartan [Cozaar] 50 mg PO DAILY 30 Days #30 tablet Rosuvastatin [Crestor] 20 mg PO HS 30 Days #30 tablet Carvedilol [Coreg] 12.5 mg PO BIDWM #0 tablet Continued Citalopram [CeleXA] 20 mg PO DAILY hydrOXYzine HCl [Hydroxyzine HCl] 25 mg PO Q8H PRN PRN Reason: Anxiety Amlodipine Besylate 10 mg PO DAILY Discontinued Losartan/Hydrochlorothiazide [Losartan-Hctz 100-25 mg Tab] 1 tab PO DAILY #0 Carvedilol [Coreg] 12.5 mg PO BID #30 tablet Home Medications: Citalopram [CeleXA] 20 mg PO DAILY 10/16/18 [History] hydrOXYzine HCl [Hydroxyzine HCl] 25 mg PO Q8H PRN 10/16/18 [History] Amlodipine Besylate 10 mg PO DAILY 11/11/18 [History] Carvedilol [Coreg] 12.5 mg PO BIDWM #0 tablet 11/13/18 [Rx] Losartan [Cozaar] 50 mg PO DAILY 30 Days #30 tablet 11/13/18 [Rx] Rosuvastatin [Crestor] 20 mg PO HS 30 Days #30 tablet 11/13/18 [Rx] Allergies/Adverse Reactions: Allergy/AdvReac Type Severity Reaction Status Date / Time zomax AdvReac Hallucinating, Uncoded 11/10/18 13:39 Swelling, Rash Date of admission: 11/11/18 17:00 Primary care physician: Chuck Rolon DO Consults: 11/12/18 07:43 Consult to Nephrology [CONS] Routine Consulting Provider: Kidney Birgit/CHARIS/CHEN/SARAH Reason for Consult: nephrotic syndrome- unexplained proteinuria Call Completed: No Discharging clinician: Ru Reynaga - Constitutional Vitals: Temp Pulse Resp BP Pulse Ox 97.9 F 67 16 174/79 96 11/13/18 03:45 11/13/18 03:45 11/13/18 03:45 11/13/18 03:45 11/13/18 03:45 General appearance: Present: cooperative, A&O X 3, pleasant, no acute distress, answers questions appropriately Exam: Gen: Vitals noted. No acute distress. Eyes: anicteric sclerae, moist conjunctivae; EOMI HENT: Atraumatic; oropharynx clear with moist mucous membranes. Poor dentition. Neck: Trachea midline; supple, no thyromegaly. Cardiac: RRR, no murmur, +S1/S2 Pulmonary: expiratory wheezes throughout. No rales or rhonchi, equal chest expansion Abdomen: soft, slight diffuse abdominal tenderness, no guarding. No masses or hepatosplenomegaly MSK: ROM intact, no joint swelling noted Extremities: no BLE edema, nontender calf Skin: Normal temperature, turgor and texture; Neuro: moves all extremities, no focal deficits. Psych: Normal affect. A&Ox3 - Patient Status Disposition: Home, Self-Care Condition: Good Functional capacity at discharge: independent ambulation - Ambulatory Orders Ambulatory Orders: Basic Metabolic Panel [CHEM] Time Frame: 1 Week, Facility: [facility], Location: Lab Basic Metabolic Panel [CHEM] Time Frame: 6 Weeks, Facility: [facility], Location: Lab Urinalysis Reflex Cult & Micro [URIN] Time Frame: 1 Week, Facility: [facility], Location: Lab - Discharge Instructions Follow Up With: Cadence Hinton CNP [Advanced Practice Nurse] - 11/14/18 10:30 am (Please follow up as schedule...) Vidal Lentz MD [Partnered Physician] - 12/31/18 2:15 pm (Please follow up as schedule...) Additional Instructions: Follow up with Nephrology in 4 weeks. Go to family doctor in 1 week to have a BMP to recheck kidney function. Continue your home medications with the addition of the Losartan and Crestor. - Diet and Activity Activity: increase activity as tolerated Diet: advance to your usual diet
[2018-11-13] MEDS: Nicotine 21 MG PATCH.TD24 TD SCH (07:51)
[2018-11-13] MEDS: amLODIPine 5 MG TABLET PO SCH (07:51)
--- NOTE | 2018-11-13 09:07 | Nephrology Progress Note ---
Date of Encounter: 11/13/18 Time of Encounter: 09:05 - Assessment and Plan (1) NEGRITA (acute kidney injury) Current Visit: Yes Status: Acute In September of this year GFR is greater than 60. GFR is 49 today. Repeat PCR today (ordered). Unsure if this is a new baseline or considered an acute kidney injury related to NSAIDs, poor by mouth intake, and dehydration at home. NEGRITA and CKD workup completed. Avoid nephrotoxins and renal dose all medications. Strict I&O Daily weights. 1.5 Liter fluid restriction at home. Nephrotic range proteinurea noted at 18.63, labs pending for further workup. Renal biopsy in am, IR aware, NPO at midnight. Will follow up with Dr. Lentz in the office in 4-6 weeks. UA and BMP in 7 days (ordered). BMP in 6 weeks (ordered). (2) Constipation Current Visit: Yes Status: Resolved Per primary. Qualifiers: Qualified Code(s): K59.00 - Constipation, unspecified (3) Hypokalemia Current Visit: Yes Status: Resolved resolved 3.9. (4) Hyponatremia Current Visit: Yes Status: Resolved Improved 134. Consider CT chest to rule out lung carcinoma, patient has extensive smoking history. Subjective Principal diagnosis: hypokalemia, hyponatremia Interval history: Pt seen and examined, doing well. States she is ready to go home. Denies nausea, vomiting, diarrhea. Denies chest pain or shortness of breath. Objective - Vital Signs Vital signs: Vital Signs Temp Pulse Resp BP Pulse Ox 11/13/18 07:27 97.3 F L 82 18 203/82 95 11/13/18 03:45 97.9 F 67 16 174/79 96 11/12/18 22:50 98.3 F 67 20 154/71 98 11/12/18 18:57 98.1 F 66 20 131/61 98 11/12/18 15:46 97.9 F 69 19 122/67 98 11/12/18 11:12 97.6 F 74 18 101/53 97 Intake and Output 11/12/18 11/13/18 11/13/18 23:59 07:59 15:59 Intake Total 1000 / 1000 Output Total 100 / 1000 Balance -100 / -880 1000 / 1000 Intake: IV Fluids 1000 / 1000 0.9 % Sodium Chloride 1,000 ML 1000 / 1000 @ 100 mls/hr IVC .Q10H [facility] Rx#: [id number] Output: Urine 100 / 1000 Other: # Voids 1 Weight 68.7 kg Patient Weight 11/13/18 23:59 Weight 68.7 kg - General Appearance General appearance: Present: well-developed, well-nourished EENT: Present: ATNC, hearing intact, vision intact Neck: Present: supple Respiratory: Present: clear Cardiology: Present: no edema, normal S1, normal S2 Gastrointestinal: Present: normoactive bowel sounds, no tenderness, no guarding Integumentary: Present: no rash, warm and dry Neurologic: Present: alert and oriented x3 Musculoskeletal: Present: no deformities, no erythema Psychiatric: Present: mood/affect appropriate, cooperative - Lab 11/13/18 04:03 11/13/18 04:03 Most recent lab results 11/12/18 11/12/18 11/13/18 18:00 18:00 04:03 Calcium 7.8 L Urine Creatinine TNP 35 Ur Total Protein 24 Hr TNP 05471 H Urine Total Protein TNP 652 H Consult Discharge Plan - Plan Additional Instructions: Follow up with Nephrology in 4 weeks. Go to family doctor in 1 week to have a BMP to recheck kidney function. Continue your home medications with the addition of the Losartan and Crestor. Referrals: Cadence Hinton CNP [Advanced Practice Nurse] - 11/14/18 10:30 am (Please follow up as schedule...) Vidal Lentz MD [Partnered Physician] - 12/31/18 2:15 pm (Please follow up as schedule...) Prescriptions: Losartan [Cozaar] 50 mg PO DAILY 30 Days #30 tablet Rosuvastatin [Crestor] 20 mg PO HS 30 Days #30 tablet
[2018-11-13 11:33] LABS: Vitamin D 25 Hydroxy 5 ng/mL (30-80)
[2018-11-13] MEDS ORDERED: Albuterol 2.5 MG/3 ML NEBULIZER IH PRN (14:24)
--- NOTE | 2018-11-13 14:24 | Internal Med Progress Note ---
<Ru Reynaga N - Last Filed: 11/13/18 16:04> Hospitalist Progress Note - Encounter Date of Encounter: 11/13/18 Time of Encounter: 14:22 - Subjective Interval History: Patient lying comfortably in bed talking to her son upon entering. Patient states she is feeling much better today, but is experiencing some mild shortness of breath when compared to yesterday. Patient denies chest pain, abdominal pain, nausea, vomiting, diarrhea, fever, chills, or leg swelling. - Exam Vitals: Temp Pulse Resp BP Pulse Ox 97.8 F 67 18 163/74 95 11/13/18 11:17 11/13/18 11:17 11/13/18 11:17 11/13/18 11:17 11/13/18 11:17 Exam: Gen: Vitals noted. No acute distress. Eyes: anicteric sclerae, moist conjunctivae; EOMI HENT: Atraumatic; oropharynx clear with moist mucous membranes. Poor dentition. Neck: Trachea midline; supple, no thyromegaly. Cardiac: RRR, no murmur, +S1/S2 Pulmonary: Mild expiratory wheezes throughout. No rales or rhonchi, equal chest expansion Abdomen: soft, slight diffuse abdominal tenderness, no guarding. No masses or hepatosplenomegaly MSK: ROM intact, no joint swelling noted Extremities: no BLE edema, nontender calf Skin: Normal temperature, turgor and texture; Neuro: moves all extremities, no focal deficits. Psych: Normal affect. A&Ox3 - Assessment and Plan (1) Asymptomatic proteinuria Current Visit: Yes Status: Acute Assessment and Plan: Total spot protein of over 2000 Could be related to Accelerated HTN or longstanding HTN Cattle Knocker normalized after initial NEGRITA 24 hour Protein/Creatinine with a value of 18.63 Retroperitoneal ultrasound showing cortical atrophy of the anterior polar and lower pole cortex of the left kidney. -Renal Biopsy to be performed in the morning and nephrology. We will follow recommendations -continue to monitor for sxs (2) Accelerated hypertension Current Visit: Yes Status: Acute Assessment and Plan: Pt with an initial BP of 223/115. IV Labetalol given in ED with effective drop in BP Pt without sxs and states this is a chronic issue with reads at home that have been elevated consistently. Patient's blood pressure elevated this morning after lowering losartan and carve dilol doses due to symptomatic hypotension. -Increased carvedilol dose to 25 mg twice a day, while keeping losartan dose at 50 mg once as well as amlodipine at 10 mg in an attempt to gain better blood pressure control -Continue to monitor (3) Hypokalemia Current Visit: Yes Status: Resolved Assessment and Plan: Severe hypokalemia likely secondary to decreased by mouth intake and vomiting, with use of losartan-HCTZ. Potassium of 2.1 on admission, given 40 meq by mouth as well as 60 meq IV Potassium up to 3.9 -Monitor for changes (4) Hyponatremia Current Visit: Yes Status: Resolved Assessment and Plan: Sodium of 129 in ED, suspected secondary to GI loss. 1 L NS given an ED with maintenance fluids started at 125 mL/hr Sodium up to 134 Na normalizing following IVF. -Chest CT ordered to rule out malignancy-induced hyponatremia -Na improved. Pt continues to take in PO fluids and food -Continue to monitor for changes. (5) NEGRITA (acute kidney injury) Current Visit: Yes Status: Resolved Assessment and Plan: Resolved. Patient's initial labs showed creatinine of 1.27 has normalized follow IVF Patient with significant nausea and vomiting as well as decreased by mouth intake prior to admission Renal US showing atrophy of the left kidney Cattle Knocker normalized and patient continues PO hydration. 24 hour protein/creatinine ratio of 18.63 -Nephrology to perform renal biopsy tomorrow, will follow recommendations (6) Nausea & vomiting Current Visit: Yes Status: Resolved Assessment and Plan: Resolved. Nausea and vomiting, electrolyte changes consistent. No nausea at this time. Pt is requesting food. (7) Hyperlipidemia Current Visit: Yes Status: Acute Assessment and Plan: Pt with Cholesterol of 321 and TG of 222 with a calculated ASCVD risk score of 17.9% -Continue pt on crestor 20 mg daily. (8) Constipation Current Visit: Yes Status: Resolved Assessment and Plan: Pt complaining of constipation. Bowel regimen started last night including soap suds enema, Senna Plus, and Miralax Still feels constipated despite a small bowel movement following enema CT scan done in ED shows no sign of bowel obstruction -Continue current regimen DVT Prophylaxis: Heparin SubQ d/c due to procedure will start SCDs - Time Spent with Patient Total time spent is greater than 50% in coordination of care (as documented) at patient's floor/unit and/or counseling patient: Internal Medicine: Result - Labs CBC & Chem 7: 11/13/18 04:03 11/13/18 04:03 Labs: Short CBC 11/13/18 Range/Units 04:03 WBC 8.9 (4.3-11.1) K/mcL Hgb 13.0 (11.5-15.4) g/dL Hct 37.9 (35.3-44.9) % Plt Count 384 (140-400) K/mcL BMP 11/13/18 04:03 Sodium 134 L Potassium 3.9 Chloride 108 H Carbon Dioxide 21 L BUN 20 Creatinine 1.13 Glucose 93 Calcium 7.8 L - ABG Interpretation ABG results: PT/INR, D-dimer PT 10.3 Seconds (9.4-12.1) 11/10/18 22:47 - Impressions Impressions Retroperitoneum Ultrasound 11/12/18 14:00 IMPRESSION: 1. Cortical atrophy of the interpolar and lower pole cortex of the left kidney 2. No hydronephrosis. No abnormality in the right kidney. D/ / 11/12/2018 15:15:27 Darion Hanks MD / bcarter Interpreting Provider: Darion Hanks MD Consult Discharge Plan - Plan Additional Instructions: Follow up with Nephrology in 4 weeks. Go to family doctor in 1 week to have a BMP to recheck kidney function. Continue your home medications with the addition of the Losartan and Crestor. Referrals: Cadence Hinton CNP [Advanced Practice Nurse] - 11/14/18 10:30 am (Please follow up as schedule...) Vidal Lentz MD [Partnered Physician] - 12/31/18 2:15 pm (Please follow up as schedule...) Prescriptions: Losartan [Cozaar] 50 mg PO DAILY 30 Days #30 tablet Rosuvastatin [Crestor] 20 mg PO HS 30 Days #30 tablet <Faiza Moctezuma - Last Filed: 11/13/18 17:49> Hospitalist Progress Note - Encounter Date of Encounter: 11/13/18 - Exam Vitals: Temp Pulse Resp BP Pulse Ox 97.4 F L 72 17 174/72 98 11/13/18 15:20 11/13/18 15:20 11/13/18 15:20 11/13/18 15:20 11/13/18 15:20 - Time Spent with Patient Total time spent is greater than 50% in coordination of care (as documented) at patient's floor/unit and/or counseling patient: Internal Medicine: Result - Labs CBC & Chem 7: 11/13/18 04:03 11/13/18 04:03 Labs: Short CBC 11/13/18 Range/Units 04:03 WBC 8.9 (4.3-11.1) K/mcL Hgb 13.0 (11.5-15.4) g/dL Hct 37.9 (35.3-44.9) % Plt Count 384 (140-400) K/mcL BMP 11/13/18 04:03 Sodium 134 L Potassium 3.9 Chloride 108 H Carbon Dioxide 21 L BUN 20 Creatinine 1.13 Glucose 93 Calcium 7.8 L - ABG Interpretation ABG results: PT/INR, D-dimer PT 10.3 Seconds (9.4-12.1) 11/10/18 22:47 - Impressions Impressions Chest CT 11/13/18 13:49 IMPRESSION: 1. No CT evidence of pulmonary malignancy. 2. Small left pleural effusion. 3. Bibasilar atelectasis. 4. Mild centrilobular emphysema. 5. Coronary artery calcifications. 6. Cholelithiasis. 7. Diffuse thickening of the adrenal glands bilaterally without focal nodularity. Differential includes adrenal hyperplasia. D/ / 11/13/2018 16:06:05 Scott Alcantara MD / alonzo Interpreting Provider: Scott Alcantara MD - Attending Attestation I have seen and independently assessed this patient and I agree with plan as documented Plan Uncontrolled hypertension. Resume home meds of amlodipine, coreg and losartan. Titrate BP meds as tolerated Hypokalemia. Replace potassium. Restart losartan Proteinuria. Unclear etiology. Renal recs appreciated. Continue ARB. Plan for biopsy in am Acute kidney injury. Continue IV fluid hydration <Ru Reynaga N - Last Filed: 11/13/18 16:04> (6) Nausea & vomiting Qualifiers: Vomiting type: unspecified Vomiting Intractability: non-intractable Qualified Code(s): R11.2 - Nausea with vomiting, unspecified (8) Constipation Qualifiers: Qualified Code(s): K59.00 - Constipation, unspecified
[2018-11-13 15:46] LABS: Protein/Creatinine Ratio,Urine 19.9 mg/mg (0.00-0.20)
[2018-11-14 06:15] LABS: Calcium 8.3 mg/dL (8.6-10.3); Potassium 3.5 mEq/L (3.5-5.1)
[2018-11-14] MEDS: amLODIPine 5 MG TABLET PO SCH (08:16)
[2018-11-14] MEDS: Nicotine 21 MG PATCH.TD24 TD SCH (08:16)
--- NOTE | 2018-11-14 10:44 | Discharge Summary ---
<Ru Reynaga N - Last Filed: 11/14/18 14:06> - NOTES TO OUTPATIENT PROVIDER Notes to Outpatient Provider: Patient seen for hyponatremia and hypo-kalemia which were normalized after IV supplementation. Patient will need a repeat BMP in 1 week. She had high blood pressure and was found to have atrophy of the left kidney on Kidney US. CTabd showed a 3.4 cm AAA that will need to be followed. Losartan 100 mg added and metoprolol increased to 25 mg Patient has a biopsy planned outpatient and nephrology consult. Will need to be followed Orders not resulted at time of discharge: Pending orders 11/11/18 06:00 EKG [ECG 12 lead ECG] [ECG] AM 0600 11/12/18 22:40 Immunofixation,Urine (BJP) Routine 11/13/18 04:03 REGINA IgG MERNA rflx IFA AM 0400 MPO/PR3 (ANCA) Antibodies Routine Protein Electrophoresis AM 0400 Date of Encounter: 11/14/18 Time of Encounter: 10:39 - Discharge Diagnosis (1) Hypokalemia Priority: Secondary Status: Resolved (2) Hyponatremia Priority: Secondary Status: Resolved (3) Accelerated hypertension Priority: Secondary Status: Acute (4) Asymptomatic proteinuria Priority: Primary Status: Acute (5) NEGRITA (acute kidney injury) Priority: Secondary Status: Resolved (6) Nausea & vomiting Priority: Secondary Status: Resolved Qualifiers: Vomiting type: unspecified Vomiting Intractability: non-intractable Qualified Code(s): R11.2 - Nausea with vomiting, unspecified (7) Hyperlipidemia Priority: Secondary Status: Acute Qualifiers: Qualified Code(s): E78.01 - Familial hypercholesterolemia (8) Constipation Priority: Secondary Status: Resolved Qualifiers: Qualified Code(s): K59.00 - Constipation, unspecified Hospital course: Ms. Baer is a 63 year old female with past medical history of hypertension and recent admission for left tonsillar abscess presented to ED complaining of nausea and vomiting as well as abnormal lab results found an outpatient provider. Patient discharged from hospital on 10/18 after ENT evaluation and given Augmentin which she just recently stopped taking. Over the 2-3 days prior to admission patient had significant amount of nausea and vomiting as well as decreased oral intake. On admission patient's labs were significant for potassium of 2.1 and a sodium of 129. Patient was also found to have blood pressure elevated at 225/100. CT abdomen the abdomen performed in ED showed a 3.4 cm infrarenal AAA. Patient started on maintenance fluids as well as IV and by mouth potassium supplementation and resolved over the next day. Patient's urinalysis was found to have over 2 grams of protein. A 24 hour creatinine/protein ratio study was initiated which gave a ratio of 18. Nephrology was consulted and a renal ultrasound was ordered which showed atrophy of the left kidney. Nephrology had planned to do inpatient biopsy, but patient's blood pressure was continuously elevated. Patient to follow with primary care and nephrology in order to gain better control of blood pressure outpatient to have biopsy performed. Patient was started on 100 mg losartan daily and metoprolol dose was increased to 25 mg twice a day as well as hydralazine 10 mg every 6 hours on the hospital. Patient's blood pressure with better control prior to discharge at 130/69. Patient repeatedly encouraged to stop smoking and to make sure to take blood pressure medications as directed. Patient to follow up with primary care doctor in the next week with logs of blood pressures to adjust medication as needed and to have further workup with nephrology as scheduled. Discharge discussed with: patient Time spent discussing smoking cessation with patient: more than 10 minutes - Time Spent with Patient Total time spent providing and/or coordinating discharge services: Time spent: Greater than 30 minutes - Discharge Medications Prescriptions: New Rosuvastatin [Crestor] 20 mg PO HS 30 Days #30 tablet Carvedilol [Coreg] 25 mg PO BIDWM 14 Days #28 tablet Losartan [Cozaar] 100 mg PO DAILY 14 Days #14 tablet Continued Citalopram [CeleXA] 20 mg PO DAILY hydrOXYzine HCl [Hydroxyzine HCl] 25 mg PO Q8H PRN PRN Reason: Anxiety Amlodipine Besylate 10 mg PO DAILY Discontinued Losartan/Hydrochlorothiazide [Losartan-Hctz 100-25 mg Tab] 1 tab PO DAILY #0 Carvedilol [Coreg] 12.5 mg PO BID #30 tablet Home Medications: Citalopram [CeleXA] 20 mg PO DAILY 10/16/18 [History] hydrOXYzine HCl [Hydroxyzine HCl] 25 mg PO Q8H PRN 10/16/18 [History] Amlodipine Besylate 10 mg PO DAILY 11/11/18 [History] Rosuvastatin [Crestor] 20 mg PO HS 30 Days #30 tablet 11/13/18 [Rx] Carvedilol [Coreg] 25 mg PO BIDWM 14 Days #28 tablet 11/14/18 [Rx] Losartan [Cozaar] 100 mg PO DAILY 14 Days #14 tablet 11/14/18 [Rx] Allergies/Adverse Reactions: Allergy/AdvReac Type Severity Reaction Status Date / Time zomax AdvReac Hallucinating, Uncoded 11/10/18 13:39 Swelling, Rash Date of admission: 11/11/18 17:00 Primary care physician: Chuck Rolon DO Consults: 11/12/18 07:43 Consult to Nephrology [CONS] Routine Consulting Provider: Kidney Birgit/CHARIS/CHEN/SARAH Reason for Consult: nephrotic syndrome- unexplained proteinuria Call Completed: No 11/13/18 10:23 Consult to Interventional Radiology [CONS] Routine Consulting Provider: Radiology Interventional Cols Reason for Consult: kidney biopsy Time Notified: 10:23 Call Completed: Yes Discharging clinician: Ru Reynaga - Constitutional Vitals: Temp Pulse Resp BP Pulse Ox 97.9 F 73 16 170/75 96 11/14/18 09:18 11/14/18 09:18 11/14/18 09:18 11/14/18 09:18 11/14/18 09:18 General appearance: Present: cooperative, A&O X 3, pleasant, no acute distress, answers questions appropriately Exam: Gen: Vitals noted. No acute distress. Eyes: anicteric sclerae, moist conjunctivae; EOMI HENT: Atraumatic; oropharynx clear with moist mucous membranes. Poor dentition. Neck: Trachea midline; supple, no thyromegaly. Cardiac: RRR, no murmur, +S1/S2 Pulmonary: CTAB. No rales or rhonchi, equal chest expansion Abdomen: soft, slight diffuse abdominal tenderness, no guarding. No masses or hepatosplenomegaly MSK: ROM intact, no joint swelling noted Extremities: no BLE edema, nontender calf Skin: Normal temperature, turgor and texture; Neuro: moves all extremities, no focal deficits. Psych: Normal affect. A&Ox3 - Patient Status Disposition: Home, Self-Care Condition: Good Functional capacity at discharge: independent ambulation Overall status at discharge: patient is back to baseline - Ambulatory Orders Ambulatory Orders: Basic Metabolic Panel [CHEM] Time Frame: 1 Week, Facility: [facility], Location: Lab Basic Metabolic Panel [CHEM] Time Frame: 6 Weeks, Facility: [facility], Location: Lab Urinalysis Reflex Cult & Micro [URIN] Time Frame: 1 Week, Facility: [facility], Location: Lab - Discharge Instructions Instructions: Losartan (By mouth), Carvedilol (By mouth), Rosuvastatin (By mouth) Follow Up With: Cadence Hinton CNP [Advanced Practice Nurse] - 11/20/18 10:30 am (Please follow up as schedule...) Vidal Lentz MD [Partnered Physician] - 12/31/18 2:15 pm (Please follow up as schedule...) Additional Instructions: Follow up with Nephrology in 4 weeks. Go to family doctor in 1 week to have a BMP to recheck kidney function. Continue your home medications with the addition of the Losartan and Crestor. - Diet and Activity Activity: increase activity as tolerated Diet: low salt diet <Faiza Moctezuma - Last Filed: 11/14/18 15:04> Orders not resulted at time of discharge: Pending orders 11/11/18 06:00 EKG [ECG 12 lead ECG] [ECG] AM 0600 11/12/18 22:40 Immunofixation,Urine (BJP) Routine 11/13/18 04:03 REGINA IgG MERNA rflx IFA AM 0400 MPO/PR3 (ANCA) Antibodies Routine Protein Electrophoresis AM 0400 11/14/18 11:31 Renal artery ultrasound [EV renal artery image] Routine 11/14/18 12:18 Antiphospholipid Ab High Spec Routine Date of Encounter: 11/14/18 Hospital course: Ms. Baer is a 63 year old female - Time Spent with Patient Total time spent providing and/or coordinating discharge services: Date of admission: 11/11/18 01:47 Primary care physician: Chuck Rolon DO Consults: 11/12/18 07:43 Consult to Nephrology [CONS] Routine Consulting Provider: Kidney Birgit/CHARIS/HCEN/SARAH Reason for Consult: nephrotic syndrome- unexplained proteinuria Call Completed: No 11/13/18 10:23 Consult to Interventional Radiology [CONS] Routine Consulting Provider: Radiology Interventional Cols Reason for Consult: kidney biopsy Time Notified: 10:23 Call Completed: Yes - Constitutional Vitals: Temp Pulse Resp BP Pulse Ox 98.5 F 71 17 153/71 98 11/14/18 12:04 11/14/18 12:04 11/14/18 12:04 11/14/18 12:04 11/14/18 12:04 - Attending Attestation I have seen and independently assessed this patient and I agree with plan as documented Exam Gen. NAD CVS. S1 S2 WNL Resp. CTAB GI. Soft, NT, ND, +BS Ext. 2+ pulses CLOTH WIRE WEAVER. GCS 15/15 Plan Uncontrolled hypertension. Resume home meds of amlodipine, coreg and losartan. Increased dose of losartan today Hypokalemia. Replace potassium. Restart losartan Proteinuria. Unclear etiology. Renal recs appreciated. Continue ARB. Biopsy canceled due to high blood pressure. Will f/u outpatient Acute kidney injury. Continue IV fluid hydration
[2018-11-14] MEDS ORDERED: 0.9 % Sodium Chloride 500 ML ONE (10:51)
--- NOTE | 2018-11-14 11:58 | Nephrology Progress Note ---
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, poor by mouth intake, dehydration Differential also could include renal artery stenosis Unsure of new baseline due to recent NSAID use In September of this year GFR was greater than 60 GFR today is 47 Patient was hydrated and creatinine improved Renal artery biopsy has been ordered Renal artery Doppler ordered for possible renal artery stenosis Anti-PLA2 receptor ordered for possible membranous nephropathy Continue strict I's and O's and daily weights Renal protective strategies Avoid nephrotoxins and renally dose medications if necessary (2) Accelerated hypertension Current Visit: Yes Status: Acute Patient states that she has had increased blood pressures at home ranging in the 200/100 range for quite some time. She states she has never been able to control her blood pressure. On renal ultrasound showed the right kidney measured 11.3 cm and the left kidney only measured 8 cm Differential includes renal artery stenosis Renal artery Doppler has been ordered (3) Hyponatremia Current Visit: Yes Status: Resolved Patient's hyponatremia has resolved at this time Likely secondary to poor oral intake and continued use of hydrochlorothiazide (4) Hypokalemia Current Visit: Yes Status: Resolved This has resolved Likely secondary to poor oral intake as well as vomiting. Subjective Principal diagnosis: hypokalemia, hyponatremia Interval history: Ms. Baer is a 63-year-old female who presented after one month of not feeling well with nausea vomiting increased fatigue and usual constipation. She was found to be hypokalemic potassium 2.1, hyponatremic 129 at the ED. She takes NSAIDs almost every day 800 mg 2-3 times daily. In September her GFR was greater than 60 and has fallen to 37. He has no previous renal history herself although her sister was on dialysis and had diabetes and her mother had only one functioning kidney" one was kinked". Patient's blood pressure the ED was also noted to be 225/100 and has continued to stay elevated during her stay. Renal ultrasound showed right kidney measuring 11.3 cm the left kidney measuring 8 cm. Cortical atrophy of the anterior pole and lower pole of the left kidney. Patient seen and examined at bedside today she states that she is feeling all right although still feels nauseous. She is scheduled to have a renal biopsy today although this is been postponed due to her blood pressure. Her potassium has increased to 3.5, chloride 101, sodium 139, BUN of 21 and creatinine 1.17 GFR of 47 and calcium of 8.3. Renal artery Doppler has been ordered due to on symmetric kidney size and high blood pressure. Objective - Vital Signs Vital signs: Vital Signs Temp Pulse Resp BP Pulse Ox 11/14/18 11:31 182/79 11/14/18 09:18 97.9 F 73 16 170/75 96 11/14/18 09:05 83 168/78 11/14/18 08:23 98 11/14/18 08:03 98.1 F 75 16 213/88 98 11/14/18 03:31 171/80 11/14/18 03:16 183/80 11/14/18 03:15 195/84 11/14/18 02:57 98.3 F 71 20 185/75 97 11/13/18 23:32 98.0 F 77 20 162/76 96 11/13/18 18:42 98.6 F 71 20 125/67 97 11/13/18 15:20 97.4 F L 72 17 174/72 98 Intake and Output 11/13/18 11/14/18 11/14/18 23:59 07:59 15:59 Intake Total 0 / 1140 0 / 0 Output Total 0 / 200 800 / 800 0 / 800 Balance 0 / 940 -800 / -800 0 / -800 Intake: Oral 0 / 140 0 / 0 Output: Urine 0 / 200 800 / 800 0 / 800 Other: Weight 69.8 kg Patient Weight 11/14/18 23:59 Weight 69.8 kg - General Appearance General appearance: Present: well-developed, well-nourished, appears started age, moderate distress EENT: Present: mucous membranes moist Neck: Present: no JVD, supple Respiratory: Present: clear. Absent: wheezing, rales Cardiology: Present: no murmurs, no rub, no gallops Gastrointestinal: Present: normoactive bowel sounds, no tenderness, no guarding Integumentary: Present: no rash, warm and dry - Lab 11/13/18 04:03 11/14/18 04:02 Most recent lab results 11/14/18 04:02 Calcium 8.3 L Consult Discharge Plan - Plan Additional Instructions: Follow up with Nephrology in 4 weeks. Go to family doctor in 1 week to have a BMP to recheck kidney function. Continue your home medications with the addition of the Losartan and Crestor. Referrals: Cadence Hinton CNP [Advanced Practice Nurse] - 11/14/18 10:30 am (Please follow up as schedule...) Vidal Lentz MD [Partnered Physician] - 12/31/18 2:15 pm (Please follow up as schedule...) Prescriptions: Carvedilol [Coreg] 25 mg PO BIDWM 14 Days #28 tablet Losartan [Cozaar] 50 mg PO DAILY 30 Days #30 tablet Losartan [Cozaar] 100 mg PO DAILY 14 Days #14 tablet Rosuvastatin [Crestor] 20 mg PO HS 30 Days #30 tablet
[2018-11-14 13:50] VITALS: BP 130/69
[2018-11-15 07:40] LABS: ANA IgG by ELISA NONE DETECTED (None Detected)
[2018-11-15 07:41] LABS: Myeloperoxidase Ab 0 AU/mL (0-19); Serine Protease-3 Antibody 1 AU/mL (0-19)
[2018-11-15 18:14] LABS: Urine Collection Volume RANDOM mL
[2018-11-16 20:55] LABS: Alpha 2 Globulin (PEP) 0.74 g/dL (0.48-1.05); Beta Globulin (PEP) 0.65 g/dL (0.48-1.10)
[2018-11-17 08:45] LABS: Immunoglobulin G 413 mg/dL (768-1632)
[2018-11-17 08:46] LABS: IFE Reflexed IFE Done; Immunoglobulin A 152 mg/dL (68-408); Immunoglobulin M 44 mg/dL (35-263)
== END 2018-11-14 14:33 | disposition home or self-care (01) ==
LOC: 2NENU 21:50 → EMEROOARM 21:50 → SUATTDRO 11-11 01:47 → 2NENU 11-11 02:29 → CDU 11-11 10:04 → 2ANU 11-11 13:20
PROVIDERS: ADMIT Family Medicine; ATTEND Internal Medicine

== ENCOUNTER 2019-04-06 12:01 | Observation (INO) ==
[2019-04-06 12:34] LABS: Basophils % 0.5 %; Eosinophils # 0.2 K/mcL (0.0-0.6); Hematocrit 45.3 % (35.3-44.9); Hemoglobin 16.1 g/dL (11.5-15.4); Immature Granulocytes % 0.2 % (0-4); Lymphocytes # 1.6 K/mcL (0.6-4.6); Mean Corpuscular HGB Conc 35.5 g/dL (31.6-35.5); Mean Corpuscular Hemoglobin 31.6 pg (28.0-33.3); Mean Corpuscular Volume 88.8 fL (83.0-100.0); Mean Platelet Volume 8.8 fL (9.4-12.4); Monocytes # 0.4 K/mcL (0.0-1.3); Monocytes % 4.6 %; Neutrophils # 6.2 K/mcL (1.6-8.9); Platelet Count 428 K/mcL (140-400); Segmented Neutrophils % 73.7 %; White Blood Count 8.4 K/mcL (4.3-11.1)
[2019-04-06 13:00] LABS: BUN/Creatinine Ratio 18 (6-26); Blood Urea Nitrogen 17 mg/dL (8-23); Calcium 9.2 mg/dL (8.6-10.3); Carbon Dioxide 24 mEq/L (23-29); Chloride 104 mEq/L (98-107); Glucose 124 mg/dL (70-105); Osmolality,Calculated 285 (280-300); Potassium 3.7 mEq/L (3.5-5.1); Sodium 136 mEq/L (136-145); Troponin I < 0.03 ng/mL (< 0.04); eGFR For African Americans > 60 (> 60); eGFR For Non-African Americans 58 (> 60)
[2019-04-06] MEDS ORDERED: Naloxone 0.4 MG/ML INJ IVP PRN (16:36)
[2019-04-06] MEDS ORDERED: Acetaminophen 325 MG TABLET PO PRN (16:53)
[2019-04-06] MEDS ORDERED: Nicotine 7 MG PATCH.TD24 TD SCH (17:15)
[2019-04-06] MEDS: carvediloL 25 MG TABLET PO SCH (18:27)
[2019-04-06] MEDS: cloNIDine HCl 0.1 MG TABLET PO SCH (19:34)
[2019-04-06] MEDS: hydrALAZINE 25 MG TABLET PO SCH (19:34)
[2019-04-06] MEDS: Nicotine 7 MG PATCH.TD24 TD SCH (21:01)
[2019-04-07 05:14] LABS: Hematocrit 40.8 % (35.3-44.9); Mean Corpuscular HGB Conc 34.6 g/dL (31.6-35.5); Mean Corpuscular Hemoglobin 31.7 pg (28.0-33.3); Mean Corpuscular Volume 91.7 fL (83.0-100.0); Mean Platelet Volume 8.8 fL (9.4-12.4); Platelet Count 349 K/mcL (140-400); Red Blood Count 4.45 M/mcL (3.82-4.97); Red Cell Distribution Width 12.1 % (11.5-14.5); White Blood Count 7.5 K/mcL (4.3-11.1)
[2019-04-07 05:23] LABS: Hemoglobin 14.1 g/dL (11.5-15.4)
[2019-04-07 05:34] LABS: BUN/Creatinine Ratio 19 (6-26); Blood Urea Nitrogen 17 mg/dL (8-23); Carbon Dioxide 23 mEq/L (23-29); Chloride 108 mEq/L (98-107); Glucose 89 mg/dL (70-105); Osmolality,Calculated 289 (280-300); Potassium 3.3 mEq/L (3.5-5.1); Sodium 139 mEq/L (136-145); eGFR For African Americans > 60 (> 60); eGFR For Non-African Americans > 60 (> 60)
[2019-04-07] MEDS: amLODIPine 5 MG TABLET PO SCH (08:36)
[2019-04-07] MEDS: cloNIDine HCl 0.1 MG TABLET PO SCH ×2 (08:36→20:19)
[2019-04-07] MEDS: hydrALAZINE 25 MG TABLET PO SCH ×3 (08:36→20:20)
[2019-04-07] MEDS: carvediloL 25 MG TABLET PO SCH ×2 (08:36→16:13)
[2019-04-07] MEDS: Furosemide 20 MG TABLET PO SCH ×2 (08:36→13:30)
[2019-04-07] MEDS ORDERED: Isovue-370 500 ML BOTTLE IVP ONE (13:13)
[2019-04-07] MEDS: Nicotine 7 MG PATCH.TD24 TD SCH (16:06)
[2019-04-07] MEDS ORDERED: Nicotine 7 MG PATCH.TD24 TD SCH (17:00)
[2019-04-08] MEDS ORDERED: Melatonin 3 MG TABLET PO ONE (00:53)
[2019-04-08 06:35] LABS: Hemoglobin 15.2 g/dL (11.5-15.4); Mean Corpuscular HGB Conc 34.5 g/dL (31.6-35.5); Mean Corpuscular Hemoglobin 31.1 pg (28.0-33.3); Mean Platelet Volume 8.8 fL (9.4-12.4); Platelet Count 351 K/mcL (140-400); Red Blood Count 4.89 M/mcL (3.82-4.97); Red Cell Distribution Width 12.2 % (11.5-14.5); White Blood Count 8.1 K/mcL (4.3-11.1)
[2019-04-08 07:30] VITALS: BP 188/72
[2019-04-08] MEDS: hydrALAZINE 25 MG TABLET PO SCH (09:15)
[2019-04-08] MEDS: amLODIPine 5 MG TABLET PO SCH (09:15)
[2019-04-08] MEDS: cloNIDine HCl 0.1 MG TABLET PO SCH (09:15)
[2019-04-08] MEDS: carvediloL 25 MG TABLET PO SCH (09:15)
[2019-04-08] MEDS: Furosemide 20 MG TABLET PO SCH (09:16)
[2019-04-08 10:25] LABS: Calcium 8.8 mg/dL (8.6-10.3); Potassium 3.8 mEq/L (3.5-5.1)
[2019-04-08] MEDS ORDERED: Aspirin 81 MG TAB.CHEW PO SCH (13:53)
[2019-04-08] MEDS ORDERED: Melatonin 3 MG TABLET PO SCH (21:00)
== END 2019-04-08 11:02 | disposition home or self-care (01) ==
LOC: 3BNU 12:01 → EMEROOARM 12:01 → 3BNU 16:50
PROVIDERS: ADMIT Internal Medicine; ATTEND Internal Medicine

== ENCOUNTER 2019-04-25 08:30 | Inpatient (IN) ==
[2019-04-25] MEDS ORDERED: cefTRIAXone 1,000 MG in Water for inj. (sterile) 10 ML IVP ONE (08:38)
[2019-04-25] MEDS ORDERED: methylPREDNISolone 125 MG/2 ML VIAL IVP ONE (08:38)
[2019-04-25] MEDS ORDERED: Azithromycin 500 MG in 0.9 % Sodium Chloride 250 ML IVPB ONE (08:38)
[2019-04-25] MEDS ORDERED: Ipratropium/Albuterol Neb 3 ML IH ONE (08:38)
[2019-04-25 09:10] LABS: Basophils # 0.1 K/mcL (0.0-0.2); Basophils % 0.4 %; Eosinophils % 0.3 %; Hematocrit 42.7 % (35.3-44.9); Hemoglobin 14.4 g/dL (11.5-15.4); Immature Granulocytes % 0.4 % (0-4); Lymphocytes # 2.7 K/mcL (0.6-4.6); Lymphocytes % 19.5 %; Mean Corpuscular HGB Conc 33.7 g/dL (31.6-35.5); Mean Corpuscular Hemoglobin 31.1 pg (28.0-33.3); Mean Corpuscular Volume 92.2 fL (83.0-100.0); Mean Platelet Volume 8.5 fL (9.4-12.4); Monocytes # 0.7 K/mcL (0.0-1.3); Neutrophils # 10.5 K/mcL (1.6-8.9); Platelet Count 435 K/mcL (140-400); Red Blood Count 4.63 M/mcL (3.82-4.97); Red Cell Distribution Width 12.4 % (11.5-14.5); Segmented Neutrophils % 74.4 %; White Blood Count 14.1 K/mcL (4.3-11.1)
[2019-04-25 09:28] LABS: Calcium 9.3 mg/dL (8.6-10.3); Potassium 3.9 mEq/L (3.5-5.1)
[2019-04-25 09:37] LABS: Troponin I 0.07 ng/mL (< 0.04)
[2019-04-25] MEDS ORDERED: Aspirin 325 MG TABLET PO ONE (11:06)
[2019-04-25] MEDS: 0.9 % Sodium Chloride 1,000 ML IVC SCH ×2 (11:25→12:10)
[2019-04-25] MEDS ORDERED: Ipratropium/Albuterol Neb 3 ML IH PRN (13:12)
[2019-04-25 15:20] LABS: Adenovirus Not Detected (Not Detect); Bordetella Pertussis Not Detected (Not Detect); Chlamydophila pneumoniae Not Detected (Not Detect); Coronavirus 229E Not Detected (Not Detect); Coronavirus HKU1 Not Detected (Not Detect); Coronavirus NL63 Not Detected (Not Detect); Coronavirus OC43 Not Detected (Not Detect); Human Metapneumovirus Not Detected (Not Detect); Human Rhinovirus/Enterovirus Not Detected (Not Detect); Influenza A Subtype 2009 H1 Not Detected (Not Detect); Influenza B Not Detected (Not Detect); Mycoplasma pneumoniae Not Detected (Not Detect); Parainfluenza Virus 1 Not Detected (Not Detect); Parainfluenza Virus 2 Not Detected (Not Detect); Parainfluenza Virus 3 Not Detected (Not Detect); Parainfluenza Virus 4 Not Detected (Not Detect); Respiratory Syncytial Virus Not Detected (Not Detect)
[2019-04-25] MEDS: MethylPREDNISolone 40 MG/ML VIAL IVP SCH ×2 (15:20→23:42)
[2019-04-25] MEDS: *HR* Heparin 5,000 UNIT/ML VIAL SQ SCH ×2 (15:20→21:26)
[2019-04-25] MEDS: Ipratropium/Albuterol Neb 3 ML IH SCH ×3 (16:44→22:32)
[2019-04-25] MEDS: carvediloL 25 MG TABLET PO SCH (17:41)
[2019-04-25] MEDS: Nicotine 14 MG PATCH.TD24 TD SCH (17:41)
[2019-04-25] MEDS: Menthol 9.1 MG LOZENGE PO PRN (21:26)
[2019-04-26 03:35] LABS: Estimated Average Glucose 114 mg/dl
[2019-04-26] MEDS: Ipratropium/Albuterol Neb 3 ML IH SCH ×4 (03:57→18:47)
[2019-04-26] MEDS: *HR* Heparin 5,000 UNIT/ML VIAL SQ SCH (06:13)
[2019-04-26] MEDS: carvediloL 25 MG TABLET PO SCH ×2 (07:46→17:19)
[2019-04-26] MEDS: MethylPREDNISolone 40 MG/ML VIAL IVP SCH ×3 (07:47→23:03)
[2019-04-26] MEDS: Aspirin 81 MG TAB.CHEW PO SCH (07:47)
[2019-04-26] MEDS: Nicotine 14 MG PATCH.TD24 TD SCH (07:49)
[2019-04-26] MEDS ORDERED: *HR* Heparin 5,000 UNIT/ML VIAL IVP PRN ×2 (07:51)
[2019-04-26] MEDS ORDERED: *HR* Heparin 5,000 UNIT/ML VIAL IVP ONE (07:51)
[2019-04-26] MEDS: Menthol 9.1 MG LOZENGE PO PRN (07:56)
[2019-04-26] MEDS: Heparin 25,000 UNIT/250 ML D5W 25,000 UNIT/250 ML IV.SOLN IVC SCH (08:50)
[2019-04-26] MEDS ORDERED: cefTRIAXone 1,000 MG in Water for inj. (sterile) 10 ML IVP SCH (09:00)
[2019-04-26 09:13] LABS: Hemoglobin 14.6 g/dL (11.5-15.4); Mean Corpuscular Hemoglobin 31.7 pg (28.0-33.3); Mean Corpuscular Volume 93.3 fL (83.0-100.0); Mean Platelet Volume 8.8 fL (9.4-12.4); Platelet Count 488 K/mcL (140-400); Red Blood Count 4.61 M/mcL (3.82-4.97); Red Cell Distribution Width 12.7 % (11.5-14.5)
[2019-04-26 09:17] LABS: White Blood Count 21.6 K/mcL (4.3-11.1)
[2019-04-26 09:18] LABS: Heparin anti-factor XA UFH 0.11 IU/mL (0.30-0.70)
[2019-04-26 09:19] LABS: INR 0.9; Prothrombin Time 10.2 Seconds (9.4-12.1)
[2019-04-26] MEDS ORDERED: Furosemide 20 MG TABLET PO SCH (12:00)
[2019-04-26] MEDS: Azithromycin 500 MG in D5% in Water 250 ML IVPB SCH (14:24)
[2019-04-26] MEDS: hydrALAZINE 25 MG TABLET PO SCH ×2 (14:29→20:24)
[2019-04-26] MEDS: cloNIDine HCl 0.1 MG TABLET PO SCH (20:24)
[2019-04-26] MEDS: hydrOXYzine pamoate 25 MG CAPSULE PO PRN (20:25)
[2019-04-27 02:17] LABS: Hemoglobin 13.7 g/dL (11.5-15.4); Mean Corpuscular HGB Conc 35.1 g/dL (31.6-35.5); Mean Corpuscular Volume 88.2 fL (83.0-100.0); Mean Platelet Volume 8.8 fL (9.4-12.4); Platelet Count 390 K/mcL (140-400); Red Blood Count 4.42 M/mcL (3.82-4.97); Red Cell Distribution Width 12.5 % (11.5-14.5); White Blood Count 17.6 K/mcL (4.3-11.1)
[2019-04-27 02:40] LABS: Calcium 8.6 mg/dL (8.6-10.3); Potassium 3.8 mEq/L (3.5-5.1)
[2019-04-27] MEDS: Ipratropium/Albuterol Neb 3 ML IH SCH ×4 (04:09→21:36)
[2019-04-27] MEDS: aMILoride 5 MG TABLET PO SCH (08:12)
[2019-04-27] MEDS: amLODIPine 5 MG TABLET PO SCH (08:12)
[2019-04-27] MEDS: Aspirin 81 MG TAB.CHEW PO SCH (08:13)
[2019-04-27] MEDS: carvediloL 25 MG TABLET PO SCH ×2 (08:14→16:22)
[2019-04-27] MEDS: Nicotine 14 MG PATCH.TD24 TD SCH (08:14)
[2019-04-27] MEDS: cloNIDine HCl 0.1 MG TABLET PO SCH ×2 (08:14→22:29)
[2019-04-27] MEDS: hydrALAZINE 25 MG TABLET PO SCH ×3 (08:14→22:29)
[2019-04-27] MEDS: MethylPREDNISolone 40 MG/ML VIAL IVP SCH ×2 (08:18→16:23)
[2019-04-27] MEDS: hydrOXYzine pamoate 25 MG CAPSULE PO PRN (08:25)
[2019-04-27] MEDS: Azithromycin 500 MG in D5% in Water 250 ML IVPB SCH (16:29)
[2019-04-27] MEDS: Heparin 25,000 UNIT/250 ML D5W 25,000 UNIT/250 ML IV.SOLN IVC SCH (16:31)
[2019-04-27] MEDS ORDERED: Perflutren Lipid Microsphere 1.3 ML in 0.9 % Sodium Chloride 8.7 ML IVP ONE (19:07)
[2019-04-27] MEDS: Melatonin 3 MG TABLET PO PRN (22:37)
[2019-04-28] MEDS: Ipratropium/Albuterol Neb 3 ML IH SCH ×2 (04:03→10:14)
[2019-04-28] MEDS: carvediloL 25 MG TABLET PO SCH ×2 (10:20→18:24)
[2019-04-28] MEDS: cloNIDine HCl 0.1 MG TABLET PO SCH ×2 (10:20→20:28)
[2019-04-28] MEDS: Aspirin 81 MG TAB.CHEW PO SCH (10:20)
[2019-04-28] MEDS: aMILoride 5 MG TABLET PO SCH (10:20)
[2019-04-28] MEDS: predniSONE 20 MG TABLET PO SCH (10:21)
[2019-04-28] MEDS: amLODIPine 5 MG TABLET PO SCH (10:21)
[2019-04-28] MEDS: Nicotine 14 MG PATCH.TD24 TD SCH (10:22)
[2019-04-28] MEDS: hydrALAZINE 25 MG TABLET PO SCH ×3 (10:22→20:28)
[2019-04-28] MEDS: *HR* Heparin 5,000 UNIT/ML VIAL SQ SCH (18:27)
[2019-04-28] MEDS: Melatonin 3 MG TABLET PO PRN (20:28)
[2019-04-29] MEDS: Heparin 25,000 UNIT/250 ML D5W 25,000 UNIT/250 ML IV.SOLN IVC SCH (01:42)
[2019-04-29] MEDS: *HR* Heparin 5,000 UNIT/ML VIAL SQ SCH ×2 (06:10→18:13)
[2019-04-29 07:45] LABS: Hematocrit 38.6 % (35.3-44.9); Hemoglobin 13.4 g/dL (11.5-15.4); Mean Corpuscular HGB Conc 34.7 g/dL (31.6-35.5); Mean Corpuscular Hemoglobin 31.2 pg (28.0-33.3); Mean Corpuscular Volume 89.8 fL (83.0-100.0); Platelet Count 344 K/mcL (140-400); Red Cell Distribution Width 12.6 % (11.5-14.5); White Blood Count 11.3 K/mcL (4.3-11.1)
[2019-04-29 08:02] LABS: Calcium 8.4 mg/dL (8.6-10.3); Potassium 4.4 mEq/L (3.5-5.1)
[2019-04-29] MEDS: Aspirin 81 MG TAB.CHEW PO SCH (09:21)
[2019-04-29] MEDS: carvediloL 25 MG TABLET PO SCH ×2 (09:21→18:13)
[2019-04-29] MEDS: cloNIDine HCl 0.1 MG TABLET PO SCH ×2 (09:21→19:51)
[2019-04-29] MEDS: hydrALAZINE 25 MG TABLET PO SCH ×3 (09:21→21:09)
[2019-04-29] MEDS: aMILoride 5 MG TABLET PO SCH (09:21)
[2019-04-29] MEDS: amLODIPine 5 MG TABLET PO SCH (09:21)
[2019-04-29] MEDS: predniSONE 20 MG TABLET PO SCH (09:21)
[2019-04-29] MEDS: Nicotine 14 MG PATCH.TD24 TD SCH (09:22)
[2019-04-29] MEDS ORDERED: 0.9 % Sodium Chloride 1,000 ML IVC SCH (12:00)
[2019-04-29] MEDS: Melatonin 3 MG TABLET PO PRN (21:07)
[2019-04-30 05:20] LABS: Hematocrit 37.9 % (35.3-44.9); Hemoglobin 12.8 g/dL (11.5-15.4); Mean Corpuscular HGB Conc 33.8 g/dL (31.6-35.5); Mean Corpuscular Hemoglobin 31.4 pg (28.0-33.3); Mean Corpuscular Volume 92.9 fL (83.0-100.0); Mean Platelet Volume 8.9 fL (9.4-12.4); Platelet Count 331 K/mcL (140-400); Red Blood Count 4.08 M/mcL (3.82-4.97); Red Cell Distribution Width 12.4 % (11.5-14.5); White Blood Count 11.7 K/mcL (4.3-11.1)
[2019-04-30] MEDS: *HR* Heparin 5,000 UNIT/ML VIAL SQ SCH ×2 (05:25→18:07)
[2019-04-30 05:39] LABS: Potassium 4.5 mEq/L (3.5-5.1)
[2019-04-30] MEDS: Nicotine 14 MG PATCH.TD24 TD SCH (08:32)
[2019-04-30] MEDS: hydrALAZINE 25 MG TABLET PO SCH ×3 (08:33→21:20)
[2019-04-30] MEDS: carvediloL 25 MG TABLET PO SCH ×2 (08:33→18:06)
[2019-04-30] MEDS: predniSONE 20 MG TABLET PO SCH (08:33)
[2019-04-30] MEDS: Aspirin 81 MG TAB.CHEW PO SCH (08:33)
[2019-04-30] MEDS: amLODIPine 5 MG TABLET PO SCH (08:33)
[2019-04-30] MEDS: cloNIDine HCl 0.1 MG TABLET PO SCH ×2 (08:33→21:20)
[2019-04-30] MEDS ORDERED: 0.9 % Sodium Chloride 1,000 ML IVC SCH ×3 (13:15→16:20)
[2019-04-30 14:13] LABS: Potassium 4.8 mEq/L (3.5-5.1)
[2019-04-30] MEDS: Melatonin 3 MG TABLET PO PRN (21:26)
[2019-04-30 21:59] LABS: Bilirubin,Urine Negative (Negative); Blood,Urine Negative (Negative); Clarity,Urine Clear (Clear); Color,Urine Yellow (Yellow); Glucose,Urine (UA) 100 mg/dL (Normal); Ketones,Urine Negative (Negative); Leukocyte Esterase,Urine Negative (Negative); Nitrite,Urine Negative (Negative); Protein,Urine 100 mg/dL (Neg-Trace); Specific Gravity,Urine 1.014 (1.010-1.025); Urobilinogen,Urine Normal (Normal)
[2019-04-30 22:02] LABS: Bacteria,Urine None Seen per hpf (None-Few); Hyaline Casts,Urine None Seen per lpf (None-Few); RBC,Urine 0-3 per hpf (0-3); Squamous Epithelial Cell,Urine Many per lpf (None-Few); WBC,Urine 0-3 per hpf (0-3)
[2019-04-30 22:24] LABS: Protein/Creatinine Ratio,Urine 2.82 mg/mg (0.00-0.20); Sodium, Urine 87.3 mEq/L
[2019-05-01] MEDS: *HR* Heparin 5,000 UNIT/ML VIAL SQ SCH (05:16)
[2019-05-01 05:54] LABS: Hematocrit 40.6 % (35.3-44.9); Hemoglobin 13.9 g/dL (11.5-15.4); Mean Corpuscular HGB Conc 34.2 g/dL (31.6-35.5); Mean Corpuscular Volume 90.6 fL (83.0-100.0); Mean Platelet Volume 8.9 fL (9.4-12.4); Platelet Count 339 K/mcL (140-400); Red Blood Count 4.48 M/mcL (3.82-4.97); Red Cell Distribution Width 12.3 % (11.5-14.5); White Blood Count 11.6 K/mcL (4.3-11.1)
[2019-05-01 06:18] LABS: Calcium 8.5 mg/dL (8.6-10.3); Potassium 4.4 mEq/L (3.5-5.1)
[2019-05-01 06:20] LABS: Uric Acid 4.3 mg/dL (2.3-7.6)
[2019-05-01] MEDS: cloNIDine HCl 0.1 MG TABLET PO SCH (08:25)
[2019-05-01] MEDS: amLODIPine 5 MG TABLET PO SCH (08:25)
[2019-05-01] MEDS: hydrALAZINE 25 MG TABLET PO SCH ×2 (08:25→14:15)
[2019-05-01] MEDS: carvediloL 25 MG TABLET PO SCH (08:26)
[2019-05-01] MEDS: Nicotine 14 MG PATCH.TD24 TD SCH (08:26)
[2019-05-01] MEDS ORDERED: predniSONE 20 MG TABLET PO SCH (09:00)
[2019-05-01] MEDS: Aspirin 81 MG TAB.CHEW PO SCH (09:55)
[2019-05-01 11:47] VITALS: BP 106/62
== END 2019-05-01 15:32 | disposition home or self-care (01) | DRG 190 ==
LOC: CDU 08:30 → EMEROOARM 08:30 → CDU 11:47 → 3BNU 16:33
PROVIDERS: ADMIT Internal Medicine; ATTEND Internal Medicine

== ENCOUNTER 2019-06-30 14:17 | Inpatient (IN) ==
[2019-06-30] MEDS ORDERED: *HR* Labetalol 20 MG/4 ML SYRINGE IVP ONE (14:39)
[2019-06-30 15:10] LABS: Basophils # 0.1 K/mcL (0.0-0.2); Basophils % 0.7 %; Eosinophils # 0.2 K/mcL (0.0-0.6); Eosinophils % 2.1 %; Hematocrit 41.1 % (35.3-44.9); Hemoglobin 14.5 g/dL (11.5-15.4); Immature Granulocytes % 0.3 % (0-4); Lymphocytes # 2.3 K/mcL (0.6-4.6); Mean Corpuscular HGB Conc 35.3 g/dL (31.6-35.5); Mean Corpuscular Hemoglobin 31.5 pg (28.0-33.3); Mean Corpuscular Volume 89.3 fL (83.0-100.0); Mean Platelet Volume 8.8 fL (9.4-12.4); Monocytes # 0.5 K/mcL (0.0-1.3); Monocytes % 5.5 %; Platelet Count 386 K/mcL (140-400); Red Cell Distribution Width 12.6 % (11.5-14.5); Segmented Neutrophils % 66.4 %; White Blood Count 9.1 K/mcL (4.3-11.1)
[2019-06-30 15:30] LABS: Alanine Aminotransferase 15 Units/L (7-52); Albumin 4.3 g/dL (3.5-5.7); Albumin/Globulin Ratio 1.3 (1.1-2.2); Alkaline Phosphatase 171 Units/L (34-104); Aspartate Amino Transferase 18 Units/L (13-39); BUN/Creatinine Ratio 17 (6-26); Bilirubin,Total 0.5 mg/dL (0.3-1.0); Blood Urea Nitrogen 22 mg/dL (8-23); Calcium 9.5 mg/dL (8.6-10.3); Carbon Dioxide 23 mEq/L (23-29); Chloride 98 mEq/L (98-107); Globulin 3.2 g/dL (2.4-3.5); Glucose 127 mg/dL (70-105); Osmolality,Calculated 283 (280-300); Potassium 3.1 mEq/L (3.5-5.1); Sodium 134 mEq/L (136-145); Total Protein 7.5 g/dL (6.4-8.9); Troponin I < 0.03 ng/mL (< 0.04); eGFR For African Americans 52 (> 60); eGFR For Non-African Americans 43 (> 60)
[2019-06-30] MEDS ORDERED: niCARdipine 20 MG in 0.9 % Sodium Chloride 192 ML IVC SCH (15:45)
[2019-06-30] MEDS ORDERED: Ondansetron ODT 4 MG TAB.RAPDIS SL PRN (16:20)
[2019-06-30] MEDS ORDERED: NON-FORMULARY MEDICATION 1 EACH EACH (Amlodipine Besylate 10 MG) PO SCH (16:30)
[2019-06-30] MEDS ORDERED: hydrALAZINE 25 MG TABLET PO SCH (16:30)
[2019-06-30] MEDS ORDERED: hydrOXYzine pamoate 25 MG CAPSULE PO PRN (17:33)
[2019-06-30] MEDS ORDERED: carvediloL 25 MG TABLET PO SCH (17:33)
[2019-06-30] MEDS ORDERED: Aspirin 81 MG TAB.CHEW PO SCH (17:45)
[2019-06-30] MEDS ORDERED: cloNIDine HCL 0.1 MG TABLET PO SCH (21:00)
[2019-06-30] MEDS: Aspirin 81 MG TAB.CHEW PO SCH (22:41)
[2019-06-30] MEDS: hydrALAZINE 25 MG TABLET PO SCH ×2 (22:44→23:25)
[2019-06-30] MEDS: carvediloL 25 MG TABLET PO SCH (22:50)
[2019-07-01 04:43] LABS: Basophils # 0.1 K/mcL (0.0-0.2); Basophils % 0.6 %; Eosinophils # 0.2 K/mcL (0.0-0.6); Eosinophils % 2.2 %; Hematocrit 37.4 % (35.3-44.9); Hemoglobin 13.1 g/dL (11.5-15.4); Immature Granulocytes % 0.2 % (0-4); Lymphocytes # 2.2 K/mcL (0.6-4.6); Mean Corpuscular Hemoglobin 31.5 pg (28.0-33.3); Mean Corpuscular Volume 89.9 fL (83.0-100.0); Monocytes # 0.7 K/mcL (0.0-1.3); Monocytes % 8.1 %; Neutrophils # 5.1 K/mcL (1.6-8.9); Platelet Count 352 K/mcL (140-400); Red Blood Count 4.16 M/mcL (3.82-4.97); Red Cell Distribution Width 12.7 % (11.5-14.5); Segmented Neutrophils % 61.9 %; White Blood Count 8.3 K/mcL (4.3-11.1)
[2019-07-01] MEDS: niCARdipine 20 MG in 0.9 % Sodium Chloride 192 ML IVC SCH ×2 (04:52→18:11)
[2019-07-01 05:07] LABS: Calcium 8.7 mg/dL (8.6-10.3); Potassium 3.6 mEq/L (3.5-5.1)
[2019-07-01 08:18] LABS: Bilirubin,Urine Negative (Negative); Blood,Urine Negative (Negative); Clarity,Urine Clear (Clear); Color,Urine Yellow (Yellow); Glucose,Urine (UA) Normal (Normal); Ketones,Urine Negative (Negative); Leukocyte Esterase,Urine Negative (Negative); Nitrite,Urine Negative (Negative); Protein,Urine >=1000 mg/dL (Neg-Trace); Specific Gravity,Urine 1.019 (1.010-1.025); Urobilinogen,Urine Normal (Normal)
[2019-07-01 08:20] LABS: Bacteria,Urine None Seen per hpf (None-Few); Hyaline Casts,Urine None Seen per lpf (None-Few); RBC,Urine 0-3 per hpf (0-3); Squamous Epithelial Cell,Urine Many per lpf (None-Few); WBC,Urine 0-3 per hpf (0-3)
[2019-07-01] MEDS: carvediloL 25 MG TABLET PO SCH ×2 (08:23→16:17)
[2019-07-01] MEDS: hydrALAZINE 25 MG TABLET PO SCH ×3 (08:23→21:00)
[2019-07-01] MEDS: Aspirin 81 MG TAB.CHEW PO SCH (08:25)
[2019-07-01 09:05] LABS: Amphetamine Screen,Urine Negative ng/mL (Cutoff=1000); Barbiturate Screen,Urine Negative ng/mL (Cutoff=200); Benzodiazepines Screen,Urine Negative ng/mL (Cutoff=200); Cannabinoid Screen,Urine Negative ng/mL (Cutoff = 50); Cocaine Screen,Urine Negative ng/mL (Cutoff= 300); Opiate Screen,Urine Negative ng/mL (Cutoff=300); Phencyclidine Screen,Urine Negative ng/mL (Cutoff=25)
[2019-07-01] MEDS: *HR* Heparin 5,000 UNIT/ML VIAL SQ SCH ×2 (14:35→20:59)
[2019-07-02] MEDS: niCARdipine 20 MG in 0.9 % Sodium Chloride 192 ML IVC SCH (01:32)
[2019-07-02 02:15] LABS: Calcium 8.9 mg/dL (8.6-10.3); Magnesium 2.3 mg/dL (1.6-2.6); Phosphorous 3.9 mg/dL (2.7-4.5); Potassium 3.9 mEq/L (3.5-5.1)
[2019-07-02] MEDS: *HR* Heparin 5,000 UNIT/ML VIAL SQ SCH ×3 (05:22→21:34)
[2019-07-02] MEDS: hydrALAZINE 25 MG TABLET PO SCH ×3 (08:35→21:34)
[2019-07-02] MEDS: carvediloL 25 MG TABLET PO SCH ×2 (08:35→17:16)
[2019-07-02] MEDS: Aspirin 81 MG TAB.CHEW PO SCH (08:36)
[2019-07-03 05:01] LABS: Calcium 8.8 mg/dL (8.6-10.3); Magnesium 2.3 mg/dL (1.6-2.6); Phosphorous 5.1 mg/dL (2.7-4.5); Potassium 3.8 mEq/L (3.5-5.1)
[2019-07-03] MEDS: *HR* Heparin 5,000 UNIT/ML VIAL SQ SCH ×3 (05:20→22:44)
[2019-07-03] MEDS: carvediloL 25 MG TABLET PO SCH (08:03)
[2019-07-03] MEDS: amLODIPine 5 MG TABLET PO SCH (08:03)
[2019-07-03] MEDS: hydrALAZINE 25 MG TABLET PO SCH ×3 (08:03→22:44)
[2019-07-03] MEDS: Aspirin 81 MG TAB.CHEW PO SCH (08:03)
[2019-07-03] MEDS: Furosemide 40 MG TABLET PO SCH (10:10)
[2019-07-04] MEDS: *HR* Heparin 5,000 UNIT/ML VIAL SQ SCH ×3 (08:44→20:44)
[2019-07-04] MEDS: Aspirin 81 MG TAB.CHEW PO SCH (08:44)
[2019-07-04] MEDS: hydrALAZINE 25 MG TABLET PO SCH ×3 (08:44→20:43)
[2019-07-04] MEDS: Furosemide 40 MG TABLET PO SCH (08:44)
[2019-07-04] MEDS: amLODIPine 5 MG TABLET PO SCH (08:44)
[2019-07-04] MEDS: cloNIDine HCL 0.1 MG TABLET PO SCH ×3 (08:45→20:43)
[2019-07-04 09:47] LABS: Calcium 9.1 mg/dL (8.6-10.3); Potassium 3.7 mEq/L (3.5-5.1)
[2019-07-05] MEDS: *HR* Heparin 5,000 UNIT/ML VIAL SQ SCH (05:44)
[2019-07-05 07:21] VITALS: BP 152/82
[2019-07-05] MEDS: amLODIPine 5 MG TABLET PO SCH (08:41)
[2019-07-05] MEDS: Aspirin 81 MG TAB.CHEW PO SCH (08:41)
[2019-07-05] MEDS: Furosemide 40 MG TABLET PO SCH (08:41)
[2019-07-05] MEDS: hydrALAZINE 25 MG TABLET PO SCH (08:42)
[2019-07-05] MEDS: cloNIDine HCL 0.1 MG TABLET PO SCH (08:42)
[2019-07-05 10:02] LABS: Calcium 8.8 mg/dL (8.6-10.3); Magnesium 2.2 mg/dL (1.6-2.6); Phosphorous 4.5 mg/dL (2.7-4.5); Potassium 3.7 mEq/L (3.5-5.1)
== END 2019-07-05 10:22 | disposition home or self-care (01) ==
LOC: EMEROOARM 14:17 → 2NNU 14:17 → SUATTDRO 20:44 → 2NNU 21:45 → 2ANU 07-03 08:40
PROVIDERS: ADMIT Internal Medicine; ATTEND Internal Medicine